=== PATIENT | male | born 1950 | race Caucasian/White ===

== ENCOUNTER 2021-03-12 16:11 | Emergency (ER) | payer MEDICARE ==
[2021-03-12 18:25] VITALS: RESP 16
--- NOTE | 2021-03-12 18:55 | CT ---
EXAMINATION TYPE: CT brain adalid heaton DATE OF EXAM: 03/12/2021 COMPARISON: None HISTORY: Fall. Left sided facial injury with puncture to left nostril by a stick. CT DLP: 1196.8 mGycm Automated exposure control for dose reduction was used. Images obtained of the brain and cervical spine without contrast. There is mild cerebral atrophy. There is no mass effect or midline shift. There is no sign of intracr anial hemorrhage. Calvarium is intact. There is some mild mucosal thickening in the left-sided spheno id sinus. Skull base is intact. Cervical vertebral abnormal alignment. There is degenerative disc space narrowing at C5-6 and C6-7 wi th bridging osteophyte formation. This calcification of the posterior longitudinal ligament from C4 t o C7 level. There is some bony spinal stenosis at C5-6 and C6-7 on the left side due to the ligament calcification. There is left-sided neural foraminal impingement. IMPRESSION: Cerebral atrophy. No acute intracranial abnormality. Spondylotic changes of the cervical spine with ligament thickening and calcification and spinal steno sis as above. No fracture.
--- NOTE | 2021-03-12 19:00 | CT ---
EXAMINATION TYPE: CT facial bones wo con DATE OF EXAM: 03/12/2021 COMPARISON: None HISTORY: Fall. Left sided facial injury with puncture to left nostril by a stick. CT DLP: 1196.8 mGycm Automated exposure control for dose reduction was used. Images obtained from the bottom of the mandible to the top of the frontal sinuses without contrast. The mandibular ring is intact. Temporomandibular joints are intact. Zygomatic arches appear normal. T he maxilla is intact. Nasal bone appears intact. Orbital margins are intact. There is no evidence of orbital blowout fracture. There is mild hyperostosis frontalis. I see no focal bone destruction. Ther e is mild ethmoid sinus mucosal thickening. IMPRESSION: Negative CT scan of the facial bones. No fracture. Minimal ethmoid sinusitis noted.
[2021-03-12 22:57] VITALS: PULSE 71; TEMP 97.1
[2021-03-12 22:59] VITALS: BP 194/104
[2021-03-12] MEDS ORDERED: ACET/COD 300 MG/30 MG STARTER PACK 6 TAB BTL PO STA (23:02)
[2021-03-12] MEDS ORDERED: AMOXIC-POT CLAV 875MG STARTER PACK 2 TAB BTL PO STA (23:02)
[2021-03-12] MEDS ORDERED: HYDROcodone/APAP 7.5-325MG 1 EACH TAB PO ONE (23:02)
--- NOTE | 2021-03-12 23:08 | ED ---
Fall HPI - General Chief Complaint: Fall Stated Complaint: Fall-Facial injury Source: patient, RN notes reviewed Mode of arrival: ambulatory Limitations: no limitations - History of Present Illness Initial Comments: This a 70-year-old male presents emergency from chief complaint of a fall. Patient states he [place] was treated states that a branch when he was left nostril. He had some bleeding. He states it is sore. Denies any visual changes no pain with ocular movement. No significant headache or neck pain. Patient states his tetanus is up-to-date. Patient offers no complaints. - Related Data Previous Rx's Medication Instructions Recorded Amoxicillin/Potassium Clav 1 tab PO Q12HR #20 tab 03/12/21 [Augmentin 875-125 Tablet] Allergies Allergy/AdvReac Type Severity Reaction Status Date / Time niacin Allergy Unknown Verified 03/12/21 18:25 [From Niaspan Extended-Release] Review of Systems ROS Statement: Those systems with pertinent positive or pertinent negative responses have been documented in the HPI. ROS Other: All systems not noted in ROS Statement are negative. Past Medical History Past Medical History: Coronary Artery Disease (CAD), Hyperlipidemia, Hypertension, Myocardial Infarction ([place]) History of Any Multi-Drug Resistant Organisms: None Reported Past Surgical History: Coronary Bypass/CABG, Heart Catheterization With Stent Past Psychological History: No Psychological Hx Reported Smoking Status: Former smoker Past Alcohol Use History: Occasional Past Drug Use History: None Reported General Exam Limitations: no limitations General appearance: alert, in no apparent distress Head exam: Present: atraumatic, normocephalic, normal inspection Eye exam: Present: normal appearance, PERRL, EOMI, other (No entrapment). Absent: scleral icterus, conjunctival injection, periorbital swelling Pupils: Present: normal accommodation ENT exam: Present: normal oropharynx, mucous membranes moist, TM's normal bilaterally, normal external ear exam, other (Dry blood the left nostril, no severe maxillary tenderness) Neck exam: Present: normal inspection. Absent: tenderness, meningismus, lymphadenopathy Respiratory exam: Present: normal lung sounds bilaterally. Absent: respiratory distress, wheezes, rales, rhonchi, stridor Cardiovascular Exam: Present: regular rate, normal rhythm, normal heart sounds. Absent: systolic murmur, diastolic murmur, rubs, gallop, clicks Neurological exam: Present: alert, oriented X3, CN II-XII intact, reflexes normal. Absent: motor sensory deficit Course Vital Signs 03/12/21 03/12/21 03/12/21 18:21 22:54 22:59 Temperature 98 F 97.1 F L Pulse Rate 69 71 Respiratory 16 16 Rate Blood Pressure 165/84 195/103 194/104 O2 Sat by Pulse 98 97 Oximetry Medical Decision Making - Medical Decision Making CTs were reviewed with no significant findings. I cannot identify foreign body or repair of laceration there was no active bleeding. Patient will be started on Augmentin, given pain control. I did explain to him that there is very high risk for infection that if there is any continuously worsening changing symptoms or any other concerns please return to emergency room immediately. Patient understands this risk. He will follow-up with ENT on Monday. Disposition Clinical Impression: Fall, Nasal trauma, Puncture wound of nose Disposition: HOME SELF-CARE Condition: Stable Instructions (If sedation given, give patient instructions): Puncture Wound (ED) Additional Instructions: Please return to the Emergency Department if symptoms worsen or any other concerns. Prescriptions: Amoxicillin/Potassium Clav [Augmentin 875-125 Tablet] 1 tab PO Q12HR #20 tab Is patient prescribed a controlled substance at d/c from ED?: No Referrals: None,Stated [Primary Care Provider] - 1-2 days Erasmo Joseph MD [STAFF PHYSICIAN] - 1-2 days Time of Disposition: 23:08
== END 2021-03-12 23:13 | disposition home or self-care (01) ==
LOC: EC 16:11
DX: S01.23XA Puncture wound without foreign body of nose, initial encounter (principal); I10 Essential (primary) hypertension; I25.2 Old myocardial infarction; I25.10 Atherosclerotic heart disease of native coronary artery without angina pectoris; E78.5 Hyperlipidemia, unspecified; Z87.891 Personal history of nicotine dependence; Z95.5 Presence of coronary angioplasty implant and graft; W01.198A Fall on same level from slipping, tripping and stumbling with subsequent striking against other object, initial encounter
CPT/HCPCS: 70450; 70486; 72125; 99284

== ENCOUNTER → 2021-05-06 | Outpatient (CLI) | payer MEDICARE ==
--- NOTE | 2021-05-07 07:45 | CT ---
EXAMINATION TYPE: CT sinus w con DATE OF EXAM: 05/06/2021 COMPARISON: 03/12/2021 HISTORY: L facial numbness, Foreign body check CT DLP: [address] of the paranasal sinuses was performed in the axial and coronal planes. Bone and soft tissue settings are submitted. The paranasal sinuses demonstrate normal aeration and development. There is chronic ethmoid sinusitis noted. Maxillary sinuses sphenoid sinus and frontal sinuses appear to be well aerated. No evidence for radiopaque foreign body. The osteal meatal units are patent bilaterally. The nasal septum is midline. No bony destructive changes are seen within the field of view. IMPRESSION: Chronic ethmoidal sinusitis.
== END | disposition home or self-care (01) ==
LOC: RADCTMAIN 14:50
PROVIDERS: ATTEND Otolaryngology
DX: J32.2 Chronic ethmoidal sinusitis (principal)
CPT/HCPCS: 82565; 84520; 36415; 70487; Q9967

== ENCOUNTER 2022-07-11 16:21 | Inpatient (IN) | payer MEDICARE ==
[2022-07-11] MEDS ORDERED: SODIUM CHLORIDE 0.9% 1,000 ML IV STA (16:38)
[2022-07-11] MEDS ORDERED: SODIUM CHLORIDE 0.9% 500 ML 500 ML IV STA (16:38)
[2022-07-11] MEDS ORDERED: AZITHROMYCIN 500 MG in SODIUM CHLORIDE 0.9% 250 ML IVPB STA (16:38)
[2022-07-11] MEDS ORDERED: IPRATROPIUM-ALBUTEROL 3 ML NEB INHALATION STA (16:38)
[2022-07-11] MEDS ORDERED: methylPREDNISolone SOD SUCCI 125 MG/2 ML VIAL IV STA (16:38)
[2022-07-11] MEDS ORDERED: KETOROLAC 15 MG/ML 1 ML VIAL IVP STA (16:39)
[2022-07-11] MEDS ORDERED: ACETAMINOPHEN TAB 500 MG TAB PO STA (16:40)
[2022-07-11 17:10] LABS: Basophils % (A) 0 %; Eosinophils % (A) 0 %; HCT 48.4 % (39.0-53.0); Lymphocytes # (A) 0.8 k/uL (1.0-4.8); Lymphocytes % (A) 7 %; MCH 29.8 pg (25.0-35.0); MCV 90.4 fL (80.0-100.0); Mean Platelet Volume 9.3; Monocytes # (A) 0.7 k/uL (0-1.0); Monocytes % (A) 6 %; Neutrophils # (A) 9.5 k/uL (1.3-7.7); Neutrophils % (A) 85 %; Platelet Count 197 k/uL (150-450); RBC 5.36 m/uL (4.30-5.90); RDW 12.7 % (11.5-15.5); WBC 11.1 k/uL (3.8-10.6)
[2022-07-11 17:14] LABS: Partial Thromboplastin Time 22.9 sec (22.0-30.0); Prothrombin Time 10.8 sec (9.0-12.0)
--- NOTE | 2022-07-11 17:14 | ED ---
SOB HPI - General Chief Complaint: Chest Pain Stated Complaint: CHEST PAIN Time Seen by Provider: 07/11/22 16:30 Source: patient Mode of arrival: ambulatory Limitations: no limitations - History of Present Illness Initial Comments: This 71-year-old male presents with a complaint of some difficulty in breathing. It sounds as though he has had some minimal problems for about a month or so. He states that he has been coughing fairly severely over the past couple of weeks. He was seen at [facility] about a week ago for similar. He was diagnosed with bronchitis and placed on antibiotics. He states that they told him that he also possibly could have pneumonia. He just finished the unknown antibiotic. Over the last day he developed a fever. Family took a temperature at home normally and this showed a temperature of 106.7. They did not give him any Tylenol or Motrin. He does state that he feels somewhat weak. He has had a mid to lower sternal chest pain as well. He states that he will cough if he takes a deep breath. He denies any pleuritic chest pain. There is no leg pain or swelling. He does relate a history of COPD. He also relates a history of previous cardiac disease including 2 myocardial infarctions, a three- vessel at age 35 and a 4 vessel CAGB at age 54. He does state that he is prone to pneumonia and used to have it on a yearly basis. No other complaints or modifying factors. The patient relates that he previously saw a drywall hanger in [facility] but he recently moved down to this area and has not established care with a drywall hanger as of yet. He has not had a stress test or heart catheterization in many years. - Related Data Previous Rx's Medication Instructions Recorded Amoxicillin/Potassium Clav 1 tab PO Q12HR #20 tab 03/12/21 [Augmentin 875-125 Tablet] Allergies Allergy/AdvReac Type Severity Reaction Status Date / Time niacin Allergy Unknown Verified 07/11/22 16:33 [From Niaspan Extended-Release] Review of Systems ROS Statement: Those systems with pertinent positive or pertinent negative responses have been documented in the HPI. ROS Other: All systems not noted in ROS Statement are negative. Past Medical History Past Medical History: Coronary Artery Disease (CAD), Hyperlipidemia, Hypertension, Myocardial Infarction ([place]) History of Any Multi-Drug Resistant Organisms: None Reported Past Surgical History: Coronary Bypass/CABG, Heart Catheterization With Stent Past Psychological History: No Psychological Hx Reported Smoking Status: Former smoker Past Alcohol Use History: Occasional Past Drug Use History: None Reported General Exam - General Exam Comments Initial Comments: GENERAL: The patient is well nourished and well hydrated. VITAL SIGNS: Heart rate, blood pressure, respiratory rate reviewed as recorded in nurse's notes. EYES: Pupils are round and reactive. Extraocular movements are intact. No conjunctival / lid redness or swelling. ENT: No external evidence of injury, swelling, or ecchymosis. Airway is patent. Throat is clear. NECK: Nontender. No swelling or evidence of injury. No subcutaneous emphysema. Trachea is midline. No thyroid mass. HEART: Regular rate and rhythm. Good peripheral pulses. LUNGS/CHEST: Breath sounds clear and equal bilaterally. No rales, rhonchi, or wheezes. No ecchymosis, subcutaneous emphysema, or tenderness. ABDOMEN: Abdomen soft without tenderness. No palpable masses or organomegaly. No peritoneal signs. No abdominal wall swelling or ecchymosis. EXTREMITIES: No extremity tenderness. Normal muscle tone and function. No thoracolumbar tenderness. NEUROLOGIC: Sensation is grossly intact. Cranial nerve exam reveals face is symmetrical, tongue is midline, speech is clear. SKIN: No abrasions or ecchymosis is noted. No induration or masses noted. PSYCHIATRIC: Alert and oriented. Appropriate behavior and judgment. Limitations: no limitations Course Vital Signs 07/11/22 07/11/22 07/11/22 16:29 16:34 16:55 Temperature 100.6 F H Pulse Rate 102 H 93 90 Respiratory 20 21 Rate Blood Pressure 148/85 148/85 O2 Sat by Pulse 94 L 99 Oximetry 07/11/22 07/11/22 07/11/22 17:00 17:08 17:30 Temperature Pulse Rate 92 92 92 Respiratory 21 16 Rate Blood Pressure 125/79 121/74 O2 Sat by Pulse 99 96 Oximetry 07/11/22 18:00 Temperature Pulse Rate 82 Respiratory 16 Rate Blood Pressure 119/66 O2 Sat by Pulse 96 Oximetry Medical Decision Making - Medical Decision Making The patient was seen and examined. All diagnostics are reviewed. The EKG does show evidence of a left bundle branch block at a rate of 96. There is associated QRS as well as ST T-wave changes likely consistent with his left bundle branch block per my interpretation. The intervals show a NV interval of 262, QRS duration of 142, and QTc interval 410. There are no old EKGs for comparison. IV is established. He is placed on a environmental monitoring technician and no ectopy is identified. He receives Toradol intravenously as well as Tylenol orally. He also receives a DuoNeb breathing treatment. Rocephin and Zithromax are given intravenously the laboratory does show slight leukocytosis as well as elevation of his troponin. The chest x-ray does not show any acute processes per my interpretation as well as the radiologist's interpretation. There is no evidence of pneumonia. It is felt as though he potentially may have bronchitis. Urinalysis is pending. Admission was recommended and patient is agreeable. Case is discussed with Dr. Bermduez who is agreeable with admission. Case also was discussed with drywall hanger who is agreeable with heparin initiation. Vinod and is therefore started for possible non-ST elevation myocardial infarction. Was pt. sent in by a medical professional or institution (, PA, PERSONNEL COORDINATOR, urgent care, hospital, or fpc...) When possible be specific @ -[No] Did you speak to anyone other than the patient for history (EMS, parent, family, police, friend...)? What history was obtained from this source @ -The and son are present and also give additional good information in regards to patient's history. Did you review nursing and triage notes (agree or disagree)? Why? @ -[I reviewed and agree with nursing and triage notes] Were old charts reviewed (outside hosp., previous admission, EMS record, old EKG, old radiological studies, urgent care reports/EKG's, fpc records)? Report findings @ -[No old charts were reviewed] Differential Diagnosis (chest pain, altered mental status, abdominal pain women, abdominal pain men, vaginal bleeding, weakness, fever, dyspnea, syncope, headac he, dizziness, GI bleed, back pain, seizure, CVA, palpatations, mental health, musculoskeletal)? @ -Non-ST elevation myocardial infarction, unstable angina, bronchitis, pneumonia, musculoskeletal chest pain, fever, hyperpyrexia, sepsis EKG interpreted by me (3pts min.). @ -[As above] X-rays interpreted by me (1pt min.). @ -[None done] CT interpreted by me (1pt min.). @ -[None done] U/S interpreted by me (1pt. min.). @ -[None done] What testing was considered but not performed or refused? (CT, X-rays, U/S, labs)? Why? @ -[None] What meds were considered but not given or refused? Why? @ -[None] Did you discuss the management of the patient with other professionals (professionals i.e. DrBroderick, PA, PERSONNEL COORDINATOR, lab, RT, psych nurse, social and political studies professor, intellectual property lawyer, teacher, chief technology officer, family service caseworker)? Give summary @ -Case is discussed with admitting physician as well as drywall hanger. Was smoking cessation discussed for >3mins.? @ -[No] Was critical care preformed (if so, how long)? @ -30 minutes of critical care time is utilized and the treatment of the patient. Were there social determinants of health that impacted care today? How? (Homelessness, low income, unemployed, alcoholism, drug addiction, transportation, low edu. Level, literacy, decrease access to med. care, long-term, rehab)? @ -[No] Was there de-escalation of care discussed even if they declined (Discuss DNR or withdrawal of care, Hospice)? DNR status @ -[No] What co-morbidities impacted this encounter? (DM, HTN, Smoking, COPD, CAD, Cancer, CVA, ARF, Chemo, Hep., AIDS, mental health diagnosis, sleep apnea, morbid obesity)? @ -[None] Was patient admitted / discharged? Hospital course, mention meds given and route, prescriptions, significant lab abnormalities, going to OR and other pertinent info. @ -The patient is admitted to the hospital as above. Undiagnosed new problem with uncertain prognosis? @ -[No] Drug Therapy requiring intensive monitoring for toxicity (Heparin, Nitro, Insulin, Cardizem)? @ -Patient is on heparin bolus and drip. Were any procedures done? @ -[No] Diagnosis/symptom? @ -As above Acute, or Chronic, or Acute on Chronic? @ -Acute Uncomplicated (without systemic symptoms) or Complicated (systemic symptoms)? @ -Uncomplicated Side effects of treatment? @ -[No] Exacerbation, Progression, or Severe Exacerbation? @ -[No] Poses a threat to life or bodily function? How? (Chest pain, [place], [place], pneumonia, PE, COPD, DKA, ARF, appy, cholecystitis, CVA, Diverticulitis, Homicidal, Suicidal, threat to staff... and all critical care pts) @ -Yes, a non-ST elevation myocardial infarction is potentially life- threatening. - Lab Data Result diagrams: 07/11/22 16:42 07/11/22 16:42 Lab Results 07/11/22 07/11/22 07/11/22 Range/Units 16:42 16:42 16:42 WBC 11.1 H (3.8-10.6) k/uL RBC 5.36 (4.30-5.90) m/uL Hgb 16.0 (13.0-17.5) gm/dL Hct 48.4 (39.0-53.0) % MCV 90.4 (80.0-100.0) fL MCH 29.8 (25.0-35.0) pg MCHC 33.0 (31.0-37.0) g/dL RDW 12.7 (11.5-15.5) % Plt Count 197 (150-450) k/uL MPV 9.3 Neutrophils % 85 % Lymphocytes % 7 % Monocytes % 6 % Eosinophils % 0 % Basophils % 0 % Neutrophils # 9.5 H (1.3-7.7) k/uL Lymphocytes # 0.8 L (1.0-4.8) k/uL Monocytes # 0.7 (0-1.0) k/uL Eosinophils # 0.0 (0-0.7) k/uL Basophils # 0.0 (0-0.2) k/uL PT 10.8 (9.0-12.0) sec INR 1.0 (<1.2) APTT 22.9 (22.0-30.0) sec Sodium 138 (137-145) mmol/L Potassium 3.9 (3.5-5.1) mmol/L Chloride 103 (98-107) mmol/L Carbon Dioxide 21 L (22-30) mmol/L Anion Gap 14 mmol/L BUN 19 (9-20) mg/dL Creatinine 0.84 (0.66-1.25) mg/dL Est GFR (CKD-EPI)AfAm >90 (>60 ml/min/1.73 sqM) Est GFR (CKD-EPI)NonAf 89 (>60 ml/min/1.73 sqM) Glucose 128 H (74-99) mg/dL Plasma Lactic Acid Shay (0.7-2.0) mmol/L Calcium 9.4 (8.4-10.2) mg/dL Total Bilirubin 1.2 (0.2-1.3) mg/dL AST 24 (17-59) U/L ALT 33 (4-49) U/L Alkaline Phosphatase 77 (38-126) U/L Troponin I (0.000-0.034) ng/mL NT-Pro-B Natriuret Pep pg/mL Total Protein 7.9 (6.3-8.2) g/dL Albumin 4.6 (3.5-5.0) g/dL Influenza Type A (PCR) (Not Detectd) Influenza Type B (PCR) (Not Detectd) RSV (PCR) (Not Detectd) SARS-CoV-2 (PCR) (Not Detectd) 07/11/22 07/11/22 07/11/22 Range/Units 16:42 16:42 16:42 WBC (3.8-10.6) k/uL RBC (4.30-5.90) m/uL Hgb (13.0-17.5) gm/dL Hct (39.0-53.0) % MCV (80.0-100.0) fL MCH (25.0-35.0) pg MCHC (31.0-37.0) g/dL RDW (11.5-15.5) % Plt Count (150-450) k/uL MPV Neutrophils % % Lymphocytes % % Monocytes % % Eosinophils % % Basophils % % Neutrophils # (1.3-7.7) k/uL Lymphocytes # (1.0-4.8) k/uL Monocytes # (0-1.0) k/uL Eosinophils # (0-0.7) k/uL Basophils # (0-0.2) k/uL PT (9.0-12.0) sec INR (<1.2) APTT (22.0-30.0) sec Sodium (137-145) mmol/L Potassium (3.5-5.1) mmol/L Chloride (98-107) mmol/L Carbon Dioxide (22-30) mmol/L Anion Gap mmol/L BUN (9-20) mg/dL Creatinine (0.66-1.25) mg/dL Est GFR (CKD-EPI)AfAm (>60 ml/min/1.73 sqM) Est GFR (CKD-EPI)NonAf (>60 ml/min/1.73 sqM) Glucose (74-99) mg/dL Plasma Lactic Acid Shay 1.5 (0.7-2.0) mmol/L Calcium (8.4-10.2) mg/dL Total Bilirubin (0.2-1.3) mg/dL AST (17-59) U/L ALT (4-49) U/L Alkaline Phosphatase (38-126) U/L Troponin I 0.096 H* (0.000-0.034) ng/mL NT-Pro-B Natriuret Pep 773 pg/mL Total Protein (6.3-8.2) g/dL Albumin (3.5-5.0) g/dL Influenza Type A (PCR) (Not Detectd) Influenza Type B (PCR) (Not Detectd) RSV (PCR) (Not Detectd) SARS-CoV-2 (PCR) (Not Detectd) 07/11/22 Range/Units 16:42 WBC (3.8-10.6) k/uL RBC (4.30-5.90) m/uL Hgb (13.0-17.5) gm/dL Hct (39.0-53.0) % MCV (80.0-100.0) fL MCH (25.0-35.0) pg MCHC (31.0-37.0) g/dL RDW (11.5-15.5) % Plt Count (150-450) k/uL MPV Neutrophils % % Lymphocytes % % Monocytes % % Eosinophils % % Basophils % % Neutrophils # (1.3-7.7) k/uL Lymphocytes # (1.0-4.8) k/uL Monocytes # (0-1.0) k/uL Eosinophils # (0-0.7) k/uL Basophils # (0-0.2) k/uL PT (9.0-12.0) sec INR (<1.2) APTT (22.0-30.0) sec Sodium (137-145) mmol/L Potassium (3.5-5.1) mmol/L Chloride (98-107) mmol/L Carbon Dioxide (22-30) mmol/L Anion Gap mmol/L BUN (9-20) mg/dL Creatinine (0.66-1.25) mg/dL Est GFR (CKD-EPI)AfAm (>60 ml/min/1.73 sqM) Est GFR (CKD-EPI)NonAf (>60 ml/min/1.73 sqM) Glucose (74-99) mg/dL Plasma Lactic Acid Shay (0.7-2.0) mmol/L Calcium (8.4-10.2) mg/dL Total Bilirubin (0.2-1.3) mg/dL AST (17-59) U/L ALT (4-49) U/L Alkaline Phosphatase (38-126) U/L Troponin I (0.000-0.034) ng/mL NT-Pro-B Natriuret Pep pg/mL Total Protein (6.3-8.2) g/dL Albumin (3.5-5.0) g/dL Influenza Type A (PCR) Not Detected (Not Detectd) Influenza Type B (PCR) Not Detected (Not Detectd) RSV (PCR) Not Detected (Not Detectd) SARS-CoV-2 (PCR) Not Detected (Not Detectd) Disposition Clinical Impression: Hyperpyrexia, Cough, Dyspnea, Chest pain, Non-ST elevation myocardial infarction (NSTEMI), Leukocytosis Disposition: ADMITTED IP TO THIS HOSP Condition: Fair Is patient prescribed a controlled substance at d/c from ED?: No Time of Disposition: 18:53 Decision Date: 07/11/22 Decision Time: 18:53
[2022-07-11 17:15] LABS: ALT 33 U/L (4-49); AST 24 U/L (17-59); African American GFR (CKD) >90 (>60 ml/min/1.73 sqM); Albumin 4.6 g/dL (3.5-5.0); Alkaline Phosphatase 77 U/L (38-126); Anion Gap 14 mmol/L; Blood Urea Nitrogen 19 mg/dL (9-20); Calcium 9.4 mg/dL (8.4-10.2); Carbon Dioxide 21 mmol/L (22-30); Chloride 103 mmol/L (98-107); Glucose 128 mg/dL (74-99); Non-African American GFR(CKD) 89 (>60 ml/min/1.73 sqM); Potassium 3.9 mmol/L (3.5-5.1); Sodium 138 mmol/L (137-145); Total Bilirubin 1.2 mg/dL (0.2-1.3); Total Protein 7.9 g/dL (6.3-8.2)
--- NOTE | 2022-07-11 17:47 | XR ---
EXAMINATION TYPE: XR chest 2V DATE OF EXAM: 07/11/2022 5:33 PM COMPARISON: None. TECHNIQUE: XR chest 2V Frontal and lateral views of the chest. CLINICAL INDICATION:Male, 71 years old with history of difficulty breathing; FINDINGS: Lungs/Pleura: There is flattening of the diaphragm with increased lucency of the lungs. No evidence o f pneumothorax, pleural effusion or focal consolidation. Pulmonary vascularity: Pulmonary vascular congestion. Heart/mediastinum: Cardiomediastinal silhouette is enlarged and stable. Musculoskeletal: No acute osseous pathology. Midline sternotomy wires are noted. IMPRESSION: 1. No acute cardiopulmonary disease process. 2. COPD changes.
[2022-07-11] MEDS ORDERED: ASPIRIN 81 MG PO STA (18:19)
[2022-07-11] MEDS ORDERED: NITROGLYCERIN OINT 1 INCH/GM PACKET TOPICAL STA (18:19)
[2022-07-11] MEDS ORDERED: HEPARIN SODIUM 1,000 UN/ML (10ML VL) IV ONE (18:46)
[2022-07-11] MEDS ORDERED: HEPARIN SODIUM 1,000 UN/ML (10ML VL) IV PRN (18:46)
[2022-07-11] MEDS ORDERED: FAMOTIDINE 20 MG/2 ML VIAL IV STA (18:47)
[2022-07-11] MEDS ORDERED: MORPHINE SULFATE 2 MG/ML SYRINGE IVP PRN (18:54)
[2022-07-11] MEDS ORDERED: NITROGLYCERIN SL TABS 0.4 MG TAB SUBLINGUAL PRN (18:54)
[2022-07-11] MEDS: HEPARIN SOD,PORK IN 0.45% NACL 25,000 UNIT in 0.45% NACL 1 250ML.BAG IV SCH (19:14)
[2022-07-11 19:24] LABS: Appearance,Urine Clear (Clear); Bilirubin,Urine Negative (Negative); Blood,Urine Negative (Negative); Color,Urine Yellow; Glucose,Urine (UA) Negative (Negative); Ketones,Urine 1+ (Negative); Leukocyte Esterase,Urine Negative (Negative); Nitrite,Urine Negative (Negative); PH, Urine 5.5 (5.0-8.0); Protein,Urine Negative (Negative); Urobilinogen,Urine <2.0 mg/dL (<2.0)
[2022-07-11] MEDS ORDERED: ALBUTEROL HFA INHALER INHALATION PRN (20:05)
[2022-07-11] MEDS: IPRATROPIUM-ALBUTEROL 3 ML NEB INHALATION SCH (20:36)
[2022-07-11] MEDS: methylPREDNISolone SOD SUCCI 125 MG/2 ML VIAL IV SCH (23:45)
[2022-07-11] MEDS: NITROGLYCERIN OINT 1 INCH/GM PACKET TOPICAL SCH (23:47)
[2022-07-12] MEDS: IPRATROPIUM-ALBUTEROL 3 ML NEB INHALATION SCH ×6 (00:02→20:20)
[2022-07-12] MEDS: NITROGLYCERIN OINT 1 INCH/GM PACKET TOPICAL SCH ×5 (05:44→22:58)
[2022-07-12] MEDS: methylPREDNISolone SOD SUCCI 125 MG/2 ML VIAL IV SCH ×4 (05:44→22:58)
[2022-07-12] MEDS ORDERED: ASPIRIN 325 MG TAB PO SCH (09:00)
[2022-07-12] MEDS ORDERED: METOPROLOL SUCCINATE (ER) 50 MG TAB.ER.24H PO SCH (09:00)
[2022-07-12] MEDS: TAMSULOSIN 0.4 MG CAP.ER.24H PO SCH (09:13)
[2022-07-12] MEDS: PANTOPRAZOLE 40 MG TABLET PO SCH (09:13)
[2022-07-12] MEDS: MONTELUKAST 10 MG TAB PO SCH (09:13)
[2022-07-12] MEDS: FLUTICASONE 50MCG/SPRAY NASAL 16GM EA NOSTRIL SCH (09:19)
[2022-07-12] MEDS: CLOPIDOGREL 75 MG TAB PO SCH (09:19)
[2022-07-12 10:00] LABS: Basophils % (A) 0 %; Eosinophils % (A) 0 %; HGB 14.6 gm/dL (13.0-17.5); Lymphocytes % (A) 10 %; MCH 30.1 pg (25.0-35.0); MCHC 33.2 g/dL (31.0-37.0); MCV 90.9 fL (80.0-100.0); Mean Platelet Volume 9.7; Monocytes # (A) 0.1 k/uL (0-1.0); Monocytes % (A) 1 %; Neutrophils # (A) 8.9 k/uL (1.3-7.7); Neutrophils % (A) 88 %; Platelet Count 179 k/uL (150-450); RBC 4.84 m/uL (4.30-5.90); RDW 13.2 % (11.5-15.5); WBC 10.1 k/uL (3.8-10.6)
[2022-07-12 10:13] LABS: INR 1.1 (<1.2); Prothrombin Time 11.5 sec (9.0-12.0)
[2022-07-12] MEDS: METOPROLOL TARTRATE 50 MG TAB PO SCH ×3 (10:43→21:17)
[2022-07-12] MEDS: AZITHROMYCIN 500 MG in SODIUM CHLORIDE 0.9% 250 ML IVPB SCH (10:44)
[2022-07-12] MEDS: FUROSEMIDE 10 MG/ML 4 ML VIAL IV SCH ×3 (10:45→22:57)
[2022-07-12] MEDS ORDERED: NITROGLYCERIN SL TABS 0.4 MG TAB SUBLINGUAL PRN (12:12)
[2022-07-12] MEDS ORDERED: ALPRAZolam 0.5 MG TAB PO PRN (12:12)
[2022-07-12] MEDS ORDERED: ALPRAZolam 0.25 MG TAB PO PRN (12:12)
[2022-07-12 15:35] LABS: VLDL Calculation 12.58 mg/dL (5.00-40.00)
[2022-07-12] MEDS: ACETAMINOPHEN TAB 325 MG TAB PO PRN ×2 (17:33→22:53)
[2022-07-12] MEDS ORDERED: ATORVASTATIN 80 MG TAB PO SCH (21:00)
[2022-07-12] MEDS ORDERED: IPRATROPIUM-ALBUTEROL 3 ML NEB INHALATION PRN (22:05)
--- NOTE | 2022-07-12 22:26 | CONS ---
CONSULTATION REASON FOR CONSULTATION: Elevated troponin. HISTORY OF PRESENT ILLNESS: Mr. Josh Pacheco is a 71-year-old gentleman, who has moved here from [facility] and came into the hospital nearly 2 to 3 weeks of what seems to be symptoms of upper respiratory tract infection with cough and expectoration, having been on antibiotics through his PCP. He came in with complaints of mostly feeling short of breath with cough and was then found to have sinus tachycardia and EKG revealed IVCD type picture with some evidence of intermittent short runs of PAT. His troponins have been elevated suggestive of a qyu-SS-kthsxqlhj FL. At the time of my evaluation, he feels a lot better. No chest pain. Resting comfortably. Breathing is easier. This patient has a significant past medical history that includes coronary artery disease with 2 previous bypass surgery initially in 1985 in [facility], subsequently in [facility] in [place] in 2004 followed by 2 vessel stenting. None of the details of the location of bypasses or the vessel stented is available. The patient has hypertension, hyperlipidemia. He was 36 years of age when he had his first bypass surgery. He additionally has hypertension, hyperlipidemia as well as benign prostatic hypertrophy. PAST MEDICAL HISTORY: 1. CAD with prior FL and 2 bypass surgeries in 1985 and 2004. 2. Hypertension. 3. Hyperlipidemia. 4. Bronchial asthma. 5. History of benign prostatic hypertrophy. MEDICATIONS: Medications at home include, 1. Zestril 2.5 mg daily. 2. Omeprazole 20 mg daily. 3. Metoprolol succinate 50 mg daily. 4. Flomax 0.4 mg daily. 5. Singulair 10 mg daily. 6. Plavix 75 mg daily, and he takes Repatha injections 140 mg subcu every 2 weeks and also albuterol inhaler. PHYSICAL EXAMINATION: VITAL SIGNS: Blood pressure is 140/70, pulse rate is about 88 per minute with short runs of PAT, sinus mechanism with IVCD. HEENT: Unremarkable. Fundus was not examined by me. NECK: Supple. There is 1 cm JVD. There are bilateral soft carotid bruits. HEART: Reveals S1, S2 with a systolic murmur at the left sternal border and apex. Second heart sound is preserved. LUNGS: Reveal fine bibasal rales. ABDOMEN: Soft, nontender. LOWER EXTREMITIES: Reveal normal pulses. No edema. CENTRAL NERVOUS SYSTEM: Normal. LABORATORY DATA: Suggest troponin profile suggestive of buq-RY-qawezpkoq FL and creatinine appears to be in the upper range of normal. IMPRESSION: 1. Acute upper respiratory infection/bronchitis with fever up to 104 degrees. According to the patient, he was febrile after arrival, but he is better now. 2. Cuw-BY-luwnuanhe myocardial infarction. 3. History of coronary artery disease with 2 previous prior bypass surgery. 4. Hyperlipidemia. 5. Hypertension. RECOMMENDATIONS: I am recommending that we continue intravenous heparin. I will obtain the records from [facility] regarding the location of bypass surgery and the stented arteries as soon as possible. We will continue intravenous heparin drip. I will add Lasix 20 mg q.8 hours IV push. Watch his renal function. Continue antibiotics and I will also place him on atorvastatin 80 mg daily and continue his aspirin and Plavix. I will perform coronary angiography tomorrow morning at 7:30, but if he has more symptoms, I will study him sooner. We are dealing with a tlb-CZ-jntdijiyq FL with unknown anatomy regarding the bypasses. I will obtain echocardiogram as soon as possible to assess LV function. I discussed my thoughts in detail with the patient. Thank you very much for the consult. MMODL / IJN: [id number] /
[2022-07-12] MEDS: HEPARIN SOD,PORK IN 0.45% NACL 25,000 UNIT in 0.45% NACL 1 250ML.BAG IV SCH (22:54)
[2022-07-12] MEDS: SODIUM CHLORIDE 0.9% 1,000 ML in EMPTY BAG 1 BAG IV SCH (22:57)
--- NOTE | 2022-07-13 00:17 | HP ---
HISTORY AND PHYSICAL CHIEF COMPLAINT: Cough, shortness of breath, and chest pain. HISTORY OF PRESENT ILLNESS: This is another admission for this 71-year-old white male. He presented to the emergency room after he had become quite short of breath over the last 4 days, but he noted that he felt better when he was sitting up. He had had a fever and had been coughing up some green sputum. He also noticed some pressure-like sensation in the anterior chest. He had no diaphoresis, palpitations, syncope, or radiation of the pain in the arms, back, or jaw. He finally came to the emergency room where he was diagnosed having bronchitis and there was no clear-cut evidence of pneumonitis. However, his troponins were elevated. REVIEW OF SYSTEMS: He denies any neurologic problems, change in vision, hearing, hemoptysis, abdominal pain, nausea, vomiting, melena, hematochezia, jaundice, hepatitis, hematuria, frequency, urgency, nocturia, renal failure, incontinence, diabetes, etc. PAST MEDICAL PROBLEMS, FAMILY, PERSONAL AND SOCIAL HISTORY: Unremarkable otherwise. He has a history of hypertension. He does not smoke and never has. ALLERGIES: He is not allergic to any medication. MEDICATIONS: He is taking, 1. Tamsulosin 0.4 h.s. 2. Clopidogrel 75 once a day. 3. Metoprolol 50 mg once a day. 4. Omeprazole 20 mg once a day. 5. Lisinopril 2.5 mg once a day. 6. Flonase once a day. 7. Albuterol. 8. Symbicort. PHYSICAL EXAMINATION: VITAL SIGNS: Blood pressure 122/74 with a pulse of 110. He is in sinus rhythm with sinus tach. Pulse ox 97%. GENERAL: He appeared to be in no acute distress. SKIN: Color is normal. Skin is warm and dry. LYMPHATICS: Lymph nodes are not enlarged. HEENT: Head, ears, eyes, nose, mouth and throat were normal. NECK: Veins are not distended. Thyroid not enlarged. CHEST: Demonstrated occasional rales and rhonchi posteriorly. CARDIOVASCULAR: Demonstrates sinus tachycardia with no murmurs or extra sounds. ABDOMEN: Soft, nontender without visceromegaly or masses. Bowel sounds are present. EXTREMITIES: Normal. NEUROLOGICAL: He was intact. DIAGNOSES: He was admitted to the hospital with diagnoses, 1. Chest pain. 2. Elevated troponin. 3. Bronchitis. 4. Probable congestive heart failure. PLAN: 1. Bed rest. 2. IV fluids. 3. Nasal O2. 4. Consult with Cardiology because of troponins. 5. BNP. DUANE / CHRISTIANAN: [id number] /
--- NOTE | 2022-07-13 00:29 | PN ---
PROGRESS NOTE DATE OF SERVICE: 07/12/2022 CHIEF COMPLAINT: Shortness of breath, chest pain with elevated troponin. HISTORY OF PRESENT ILLNESS: This gentleman is feeling much better. His shortness of breath has improved. All 3 troponins are elevated, however. He denies pain at this time. PHYSICAL EXAMINATION: CHEST: Clear. CARDIAC: Normal. ABDOMEN: Soft and nontender. VITAL SIGNS: His blood pressure is good at 137/74. IMPRESSION: 1. NSTEMI. 2. Bronchitis. PLAN: Telemetry and await cardiology evaluation. MMODL / IJN: [id number] /
[2022-07-13] MEDS ORDERED: ASPIRIN 325 MG TAB PO ONE (05:00)
[2022-07-13] MEDS ORDERED: ATORVASTATIN 80 MG TAB PO ONE (05:00)
[2022-07-13] MEDS: FUROSEMIDE 10 MG/ML 4 ML VIAL IV SCH ×2 (05:52→18:43)
[2022-07-13] MEDS: METOPROLOL TARTRATE 50 MG TAB PO SCH ×3 (06:30→21:30)
[2022-07-13] MEDS: PANTOPRAZOLE 40 MG TABLET PO SCH (06:30)
[2022-07-13] MEDS: MONTELUKAST 10 MG TAB PO SCH (06:30)
[2022-07-13] MEDS: CLOPIDOGREL 75 MG TAB PO SCH (06:30)
[2022-07-13] MEDS: methylPREDNISolone SOD SUCCI 125 MG/2 ML VIAL IV SCH ×2 (06:30→13:04)
[2022-07-13] MEDS: TAMSULOSIN 0.4 MG CAP.ER.24H PO SCH ×2 (06:31→18:44)
[2022-07-13] MEDS: NITROGLYCERIN OINT 1 INCH/GM PACKET TOPICAL SCH ×2 (06:31→13:04)
[2022-07-13] MEDS: FLUTICASONE 50MCG/SPRAY NASAL 16GM EA NOSTRIL SCH (06:32)
[2022-07-13] MEDS ORDERED: HEPARIN SODIUM,PORCINE 2,500 UNIT in SODIUM CHLORIDE 0.9% 250 ML IRRIGATION PRN (07:00)
[2022-07-13] MEDS ORDERED: HEPARIN SODIUM,PORCINE 10,000 UNIT in SODIUM CHLORIDE 0.9% 1,000 ML IRRIGATION PRN (07:00)
--- NOTE | 2022-07-13 07:29 | CA ---
Transthoracic Echo Report Name: Josh Pacheco Age: 71 Gender: M : 1950 Exam Date: 07/12/2022 10:19 Exam Location: [facility] Ht (in): 72 Wt (lb): 195 Ordering Physician: Terence Hughes DO Attending/Referring Phys: Manager [employer] Communications Kimberly Sarmiento RDCS Procedure CPT: Indications: CP Cardiac Hx: Technical Quality: Fair Contrast 1: Total Dose (mL): Contrast 2: Total Dose (mL): MEASUREMENTS (Male / Female) Normal Values 2D ECHO LV Diastolic Diameter PLAX 6.8 cm 4.2 - 5.9 / 3.9 - 5.3 cm LV Systolic Diameter PLAX 5.0 cm IVS Diastolic Thickness 1.7 cm 0.6 - 1.0 / 0.6 - 0.9 cm LVPW Diastolic Thickness 1.8 cm 0.6 - 1.0 / 0.6 - 0.9 cm LV Relative Wall Thickness 0.5 RV Internal Dim ED PLAX 4.1 cm LA Volume 83.1 cm??? 18 - 58 / 22 - 52 cm??? M-MODE Aortic Root Diameter MM 3.3 cm LA Systolic Diameter MM 5.3 cm LA Ao Ratio MM 1.6 AV Cusp Separation MM 1.7 cm DOPPLER AV Peak Velocity 189.8 cm/s AV Peak Gradient 14.4 mmHg AV Mean Velocity 136.2 cm/s AV Mean Gradient 7.9 mmHg AV Velocity Time Integral 42.5 cm LVOT Peak Velocity 112.6 cm/s LVOT Peak Gradient 5.1 mmHg MV Area PHT 7.5 cm??? Mitral E Point Velocity 144.8 cm/s Mitral A Point Velocity 2.7 cm/s Mitral E to A Ratio 53.4 MV Deceleration Time 100.8 ms MV E' Velocity 5.3 cm/s Mitral E to MV E' Ratio 27.2 TR Peak Velocity 287.6 cm/s TR Peak Gradient 33.1 mmHg Right Ventricular Systolic Press 38.1 mmHg FINDINGS Left Ventricle Moderately increased left ventricular wall thickness. Mild left ventricular dilatation. Hypokinetic mid inferior wall. Hypokinetic mid lateral wall. Left ventricular ejection fraction is estimated at 35- 40 %. Right Ventricle Moderate right ventricular dilatation. Mild pulmonary hypertension. Right Atrium Mild right atrial dilatation. Left Atrium Severely increased left atrial volume. Mildly increased left atrial area. Mitral Valve Structurally normal mitral valve. Mild mitral regurgitation.mitral annular calcification. Aortic Valve Thickened aortic valve without stenosis. No aortic regurgitation. Tricuspid Valve Structurally normal tricuspid valve. Qusk-ro-hegywzyp tricuspid regurgitation. Pulmonic Valve Structurally normal pulmonic valve. Trace pulmonic regurgitation. Pericardium No pericardial effusion. Aorta Normal size aortic root and proximal ascending aorta. CONCLUSIONS 1. Moderately impaired left ventricular systolic function with segmental wall motion abnormality consistent with CAD 2. Mild mitral with mild to moderate tricuspid regurgitation and mild pulmonary hypertension Previewed by: Dr. Ivon Cole MD (Electronically Signed) Final Date: 12 Jul 2022 13:11
[2022-07-13] MEDS: IPRATROPIUM-ALBUTEROL 3 ML NEB INHALATION SCH ×4 (08:30→21:28)
[2022-07-13] MEDS: AZITHROMYCIN 500 MG in SODIUM CHLORIDE 0.9% 250 ML IVPB SCH (09:43)
[2022-07-13 11:09] LABS: African American GFR (CKD) >90 (>60 ml/min/1.73 sqM); Anion Gap 11 mmol/L; Blood Urea Nitrogen 23 mg/dL (9-20); Calcium 9.4 mg/dL (8.4-10.2); Carbon Dioxide 25 mmol/L (22-30); Chloride 104 mmol/L (98-107); Glucose 172 mg/dL (74-99); Non-African American GFR(CKD) 84 (>60 ml/min/1.73 sqM); Sodium 140 mmol/L (137-145)
--- NOTE | 2022-07-13 11:25 | P.PN ---
Subjective Progress Note Date: 07/13/22 HISTORY OF PRESENT ILLNESS: This is a 71-year-old male who presented to the hospital with a chief complaint of upper respiratory symptoms. Patient was found to have a NSTEMI. He is scheduled to undergo cardiac catheterization today with Dr. Segura. Patient currently denies any chest pain or pressure. He denies shortness of breath. Vital signs are stable. Echocardiogram completed revealing ejection fraction 35-40%, mild pulmonary hypertension, mild mitral regurgitation, hqbb-ms-zngjtpyj tricuspid regurgitation. *Records reviewed from [facility]. Patient had his first CABG in 1985. He underwent a second CABG in 2004. The patient continued to have chest pain after his second CABG. He underwent cardiac catheterization in September 2004 revealing patent MONTESINOS to LAD. Occluded SVG to OM1, patent SVG to OM 2, and patent SVG to RCA. Patient underwent stenting of the SVG to the OM1. He also underwent stenting of the ostium and proximal LAD supplying the diagonal which was a tuscarora vessel. PHYSICAL EXAM: VITAL SIGNS: Reviewed. GENERAL: Well-developed in no acute distress. NECK: Supple. No JVD or thyromegaly LUNGS: Respirations even and unlabored. Lungs essentially clear to auscultation bilaterally. HEART: Regular rate and rhythm. S1 and S2 heard. EXTREMITIES: Normal range of motion. No clubbing or cyanosis. Peripheral pulses intact. No lower extremity edema ASSESSMENT: Upper respiratory infection Non-STEMI History of coronary artery disease with previous CABG 2 in 1985 and 2004 and subsequent stenting Hypertension Hyperlipidemia, on Repatha outpatient Ischemic cardiomyopathy Runs of paroxysmal atrial tachycardia PLAN: Continue IV heparin. Discontinue at 0930 for cardiac cath today. Continue additional cardiac medications Increase lisinopril for optimal blood pressure control Patient to undergo cardiac cath today with Dr. Segura Further recommendations pending patient course Nurse practitioner note has been reviewed by physician. Signing provider agrees with the documented findings, assessment, and plan of care. Objective - Vital Signs Vital signs: Vital Signs Temp 97.2 F L 07/13/22 08:00 Pulse 92 07/13/22 08:43 Resp 18 07/13/22 08:00 BP 186/97 07/13/22 08:00 Pulse Ox 97 07/13/22 08:00 FiO2 Intake & Output 07/12/22 07/13/22 07/13/22 18:59 06:59 18:59 Intake Total 180 250 Output Total 700 Balance 180 -450 Weight 88.451 kg 87.9 kg Intake: Intake, IV Titration 250 Amount Heparin Sod,Pork in 0.45% 250 NaCl 25,000 unit In 0.45 % NaCl 1 250ml.bag @ 11.3 UNITS/KG/HR 9.995 mls/hr IV .Q24H [facility] Rx#: [id number] Oral 180 Output: Urine 700 Other: Voiding Method Toilet - Labs CBC & Chem 7: 07/12/22 09:14 07/13/22 09:14 Labs: Abnormal Lab Results - Last 24 Hours (Table) 07/12/22 07/12/22 07/13/22 Range/Units 12:32 23:37 09:14 APTT 54.1 H (22.0-30.0) sec BUN 23 H (9-20) mg/dL Glucose 172 H (74-99) mg/dL Troponin I 4.460 H* (0.000-0.034) ng/mL 07/13/22 Range/Units 09:14 APTT 38.6 H (22.0-30.0) sec BUN (9-20) mg/dL Glucose (74-99) mg/dL Troponin I (0.000-0.034) ng/mL Microbiology - Last 24 Hours (Table) 07/11/22 16:38 Blood Culture - Preliminary Blood
[2022-07-13] MEDS ORDERED: HEPARIN SODIUM 1,000 UN/ML (10ML VL) ONE (12:06)
[2022-07-13] MEDS ORDERED: VERAPAMIL 2.5 MG/ML 2 ML AMP ONE (12:06)
[2022-07-13] MEDS ORDERED: LIDOCAINE 1% INJ 10MG/ML (20 ML MDV) ONE (12:11)
[2022-07-13] MEDS ORDERED: SODIUM CHLORIDE 0.9% 1,000 ML IV ONE (12:15)
[2022-07-13] MEDS ORDERED: MIDAZOLAM 2 MG/2 ML VIAL IVP ONE (12:17)
[2022-07-13] MEDS ORDERED: LIDOCAINE 1% INJ 10MG/ML (20 ML MDV) SQ ONE (12:20)
[2022-07-13] MEDS ORDERED: fentaNYL (PF) 50 MCG/ML 2 ML AMP ONE (12:23)
[2022-07-13] MEDS ORDERED: fentaNYL (PF) 50 MCG/ML 2 ML AMP IVP ONE (12:25)
[2022-07-13] MEDS ORDERED: IOPAMIDOL-370 100ML BTL INJ ONE ×2 (12:45→14:14)
[2022-07-13] MEDS ORDERED: FUROSEMIDE 10 MG/ML 4 ML VIAL ONE (12:52)
[2022-07-13] MEDS: HEPARIN SODIUM 1,000 UN/ML (10ML VL) IV ONE ×3 (12:55→14:22)
[2022-07-13] MEDS ORDERED: FUROSEMIDE 10 MG/ML 4 ML VIAL IV ONE (12:55)
[2022-07-13] MEDS ORDERED: HYDROmorphone 0.5 MG/0.5 ML SYRINGE IVP ONE ×2 (13:57→14:13)
[2022-07-13] MEDS ORDERED: NITROGLYCERIN 1000MCG/10ML SYRINGE INTRACORON ONE (14:11)
[2022-07-13] MEDS ORDERED: CLOPIDOGREL 75 MG TAB ONE (14:15)
[2022-07-13] MEDS ORDERED: CLOPIDOGREL 75 MG TAB PO ONE (14:22)
[2022-07-13] MEDS ORDERED: ZOLPIDEM 5 MG TAB PO PRN (14:31)
[2022-07-13] MEDS ORDERED: ATROPINE SULFATE 0.1 MG/ML 10ML SYRINGE IV PRN (14:31)
[2022-07-13] MEDS ORDERED: MAG HYDROX/AL HYDROX/SIMETH 30 ML CUP PO PRN (14:31)
[2022-07-13] MEDS ORDERED: RX INFO: IV CONTRAST WAS GIVEN 1 EACH MISC MISCELLANE PRN (14:31)
[2022-07-13] MEDS: SODIUM CHLORIDE 0.9% 1,000 ML in EMPTY BAG 1 BAG IV SCH (21:30)
[2022-07-13] MEDS: lisinopriL 10 MG TAB PO SCH (21:30)
[2022-07-14] MEDS: FUROSEMIDE 10 MG/ML 4 ML VIAL IV SCH ×2 (00:34→09:21)
--- NOTE | 2022-07-14 02:17 | CC ---
CARDIAC CATHETERIZATION REPORT PROCEDURES PERFORMED: 1. Left heart catheterization, coronary angiography, and selective injection of bypass grafts and left internal mammary artery graft. 2. Shockwave lithotripsy of major diagonal branch of left anterior descending. 3. Percutaneous transluminal coronary angioplasty and stenting of major diagonal branch of left anterior descending with a drug-eluting stent. PERFORMED BY: Dr. Artie Segura. Moderate conscious sedation time was 2 hours and 5 minutes. CLINICAL INFORMATION: Mr. Josh Pacheco is a 71-year-old gentleman with a history of CAD. He underwent 2 aortocoronary bypass surgeries, one in 1985 when he was 37 years of age and another one in 2004. In 2004, following his bypass surgery in August 2004, in September, he had a non-ST- elevation AZ and underwent a cardiac cath, which revealed that one of the graft was occluded, and therefore it was stented. This was a graft that was placed from the aorta to the previous graft stump and was supplying the 2nd obtuse marginal of the posterolateral branch and the occlusion was from the previous graft all the way into the distal PLV branch. This was addressed with multiple stents. At that time, he also had stenting of the ostium of the LAD into the proximal portion because there was a tight stenosis supplying the diagonal branch, which apparently was not grafted. He has 2 other vein grafts, one to the distal RCA and one to the first obtuse marginal were patent and the MONTESINOS to LAD was patent. He has not seen a bed operator in several years. He takes Repatha, carvedilol, and also a beta wilma. He came into the hospital with increasing shortness of breath, was found to have a yoq-ZN-wwzbeutxk AZ and mild congestive heart failure. After stabilizing him, he was advised cardiac cath after due discussion regarding risks, benefits, and options. I obtained the records from [facility] in [place], where he had his procedures performed in 2004. PROCEDURE NOTE: Under local anesthesia and strict aseptic precautions, a 6-Persian introducer was placed in the right femoral artery. I used a standard left Megan catheter to selectively cannulate the left coronary artery. I used a Franck catheter for the MONTESINOS injection. I used AR2 catheter for selective injection of the jamul RCA, the 3 vein grafts. I also used a pigtail catheter to check LV pressures. Following this, I decided to perform PCI of the jamul diagonal branch, which had a 90% stenosis and there was a small branch that came off, which was a secondary branch that was about 1 mm or less. I performed PCI in the same setting. CARDIAC CATHETERIZATION FINDINGS: The left ventricular end-diastolic pressure was about 22 mmHg without any gradient across aortic valve. CORONARY ANGIOGRAPHY FINDINGS: RIGHT CORONARY ARTERY: Dominant vessel, has diffuse disease, distally 70% stenosis, bifurcates into PDA and PLV, and there is a competitive flow into the distal RCA, which is diffusely diseased. LEFT MAIN CORONARY ARTERY: Short, patent vessel that seems to supply only the LAD. Left main actually appears to supply the LAD only. LEFT ANTERIOR DESCENDING CORONARY ARTERY: This vessel seems to be occluded after diagonal branch and the injection of the left system opacifies only the diagonal branch, which is of fair caliber. The LAD is grafted somewhat distally on the MONTESINOS graft. It is a small secondary branch that has also a diffuse disease and ostial narrowing as it comes off from the major diagonal branch. There is a 90% stenosis in the body of the major diagonal branch. The origin of the LAD, which was stented in 2004 is patent with decent flow. There is an 80% to 90% stenosis in the major diagonal branch in the midportion at the origin of the secondary branch. LEFT POSTERIOR CIRCUMFLEX CORONARY ARTERY: This vessel is not seen, probably has a flush ostial occlusion. SAPHENOUS VEIN GRAFT TO THE DISTAL RCA: This graft is widely patent at its origin, course, insertion site and opacifies the 2 branches of RCA, has minor diffuse disease. SAPHENOUS VEIN GRAFT TO THE FIRST OBTUSE MARGINAL: This graft is widely patent at its origin, course, insertion site and opacified obtuse marginal is diffusely diseased. LEFT INTERNAL MAMMARY ARTERY GRAFT TO LAD: This graft is widely patent, opacifies the distal aspect of the LAD, but the proximal flow is somewhat limited. Distal to the attachment, there is mild diffuse disease in the LAD as it runs towards the apex. The grafting is done somewhat to the distal aspect of the LAD. SAPHENOUS VEIN GRAFT TO THE PLV BRANCH OF CIRCUMFLEX: This graft is probably totally occluded seen as a stump. FINAL IMPRESSION: This patient has elevated filling pressures, no gradient, significant disease involving the circumflex, which is totally occluded and mid LAD totally occluded. Diagonal branch has a 90% narrowing, which appears to be progression of disease compared to the old catheterization report. RCA has diffuse disease distally. There is a tight stenosis and competitive flow. The vein graft to the first obtuse marginal and vein graft to the RCA are widely patent with decent flow, but diffuse disease within the jamul vessels beyond insertion site. MONTESINOS to LAD is patent, but the attachment is somewhat distally. There is mild diffuse disease in the LAD. One of the vein graft to the PLV branch is probably totally occluded, not seen and some stump is noted. RECOMMENDATIONS: I recommended PCI of the major diagonal branch and perform this in the same setting. PCI PROCEDURE DETAILS: I used a standard JL4 guide catheter to cannulate the left coronary artery. The whisper wire was used to cross the lesion. Wire was kept in the small diagonal branch just at the site of 90% stenosis. I had difficulty advancing into the diagonal because of heavy calcification. I used a super cross with 45 degree and a run-through wire, long wire. With this, I was able to cross and wire was kept distally. I tried to advance a 2.0 balloon, I had difficulty. I used a 1.5 NC Trek balloon. With this, I made a first inflation into the major diagonal branch. Then I used a 2.0 and subsequently 2.5 caliber NC Trek balloon of 15 mm length with decent improvement. I then used a 3.0 caliber NC Trek balloon and was able to dilate that area with improvement. I then used a 3.0-caliber 12-mm long shockwave balloon and performed lithotripsy at and before the lesion. Three treatments were given. Subsequently, I tried to advance the stent, but I had a lot of difficulty. I then dilated the proximal portion with a 3.0 caliber NC Trek balloon and advanced an 18 mm long 2.0 caliber Anibal stent with the help of a GuideLiner and I deployed the stent at 14 atmospheres. I post dilated this with a 2.5 caliber 15 mm NC Trek balloon. Excellent angiographic result was achieved, but the small tiny secondary branch that was jailed was occluded. The patient had mild chest discomfort. No EKG changes. Excellent angiographic result was achieved. He received 20 mg of Lasix intravenously. He received a 6000 units of heparin and ACT during the procedure was 273. Excellent angiographic result was achieved. A tiny branch was jailed with sluggish flow. Results were discussed with the patient and several family members. The sheath was taken out, and Angio-Seal device used to secure hemostasis, and he was sent to the room in a stable condition. Excellent angiographic result was achieved. The patient will be optimized in terms of heart failure treatment and discharged in 48 hours if stable. Ejection fraction is in the 35% to 40% range and if it improves, he will not need an ICD. I discussed this with the patient and family. He was sent to the room in a stable condition. MMAMISHL / INOCENCIO: [id number] /
[2022-07-14] MEDS: PANTOPRAZOLE 40 MG TABLET PO SCH (06:29)
[2022-07-14] MEDS ORDERED: lisinopriL 10 MG TAB PO SCH (09:00)
[2022-07-14] MEDS: IPRATROPIUM-ALBUTEROL 3 ML NEB INHALATION SCH ×4 (09:11→22:11)
[2022-07-14 09:37] LABS: Basophils % (A) 0 %; Eosinophils % (A) 0 %; HCT 47.2 % (39.0-53.0); HGB 15.2 gm/dL (13.0-17.5); Lymphocytes # (A) 2.1 k/uL (1.0-4.8); Lymphocytes % (A) 16 %; MCH 29.5 pg (25.0-35.0); MCHC 32.2 g/dL (31.0-37.0); MCV 91.7 fL (80.0-100.0); Mean Platelet Volume 9.2; Monocytes # (A) 0.5 k/uL (0-1.0); Monocytes % (A) 4 %; Neutrophils # (A) 10.1 k/uL (1.3-7.7); Neutrophils % (A) 79 %; Platelet Count 229 k/uL (150-450); RBC 5.15 m/uL (4.30-5.90); RDW 13.4 % (11.5-15.5); WBC 12.8 k/uL (3.8-10.6)
[2022-07-14 09:57] LABS: African American GFR (CKD) >90 (>60 ml/min/1.73 sqM); Anion Gap 14 mmol/L; Blood Urea Nitrogen 25 mg/dL (9-20); Calcium 9.2 mg/dL (8.4-10.2); Carbon Dioxide 24 mmol/L (22-30); Chloride 102 mmol/L (98-107); Glucose 164 mg/dL (74-99); Non-African American GFR(CKD) 85 (>60 ml/min/1.73 sqM); Potassium 3.9 mmol/L (3.5-5.1); Sodium 140 mmol/L (137-145)
--- NOTE | 2022-07-14 09:57 | XR ---
EXAMINATION TYPE: XR chest 2V DATE OF EXAM: 07/14/2022 9:50 AM COMPARISON: Chest radiographs from 07/11/2022 TECHNIQUE: XR chest 2V Frontal and lateral views of the chest. CLINICAL INDICATION:Male, 71 years old with history of SOB; FINDINGS: Lungs/Pleura: Prominent interstitial lung markings are seen scattered throughout the lungs with laina ening of the diaphragm and increased lucency of the lung apices. No evidence of focal consolidation, pneumothorax or pleural effusion. Pulmonary vascularity: Unremarkable. Heart/mediastinum: Cardiomediastinal silhouette is enlarged and stable. Musculoskeletal: No acute osseous pathology. Midline sternotomy wires and surgical clips project over the mediastinum. Other findings: None IMPRESSION: 1. No acute cardiopulmonary disease process. 2. COPD changes.
[2022-07-14] MEDS: ISOSORBIDE MONONITRATE ER 30 MG TAB.ER.24H PO SCH (10:22)
[2022-07-14] MEDS: MONTELUKAST 10 MG TAB PO SCH (10:22)
[2022-07-14] MEDS: CLOPIDOGREL 75 MG TAB PO SCH (10:22)
[2022-07-14] MEDS: lisinopriL 10 MG TAB PO SCH ×2 (10:22→20:52)
[2022-07-14] MEDS: ASPIRIN 81 MG PO SCH (10:22)
[2022-07-14] MEDS: METOPROLOL TARTRATE 50 MG TAB PO SCH ×3 (10:22→20:51)
[2022-07-14] MEDS: FUROSEMIDE 40 MG TAB PO SCH (10:22)
[2022-07-14] MEDS: FLUTICASONE 50MCG/SPRAY NASAL 16GM EA NOSTRIL SCH (10:23)
[2022-07-14] MEDS: AZITHROMYCIN 500 MG in SODIUM CHLORIDE 0.9% 250 ML IVPB SCH (10:23)
--- NOTE | 2022-07-14 10:44 | P.PN ---
Subjective Progress Note Date: 07/14/22 HISTORY OF PRESENT ILLNESS: This is a 71-year-old male who presented to the hospital with a chief complaint of upper respiratory symptoms. Patient was found to have a NSTEMI. He is scheduled to undergo cardiac catheterization today with Dr. Segura. Patient currently denies any chest pain or pressure. He denies shortness of breath. Vital signs are stable. Echocardiogram completed revealing ejection fraction 35-40%, mild pulmonary hypertension, mild mitral regurgitation, [id number] tricuspid regurgitation. *Records reviewed from [facility]. Patient had his first CABG in 1985. He underwent a second CABG in 2004. The patient continued to have chest pain after his second CABG. He underwent cardiac catheterization in September 2004 revealing patent MONTESINOS to LAD. Occluded SVG to OM1, patent SVG to OM 2, and patent SVG to RCA. Patient underwent stenting of the SVG to the OM1. He also underwent stenting of the ostium and proximal LAD supplying the diagonal which was a [place] vessel. 07/14/2022 Patient is status post cardiac catheterization with Dr. Segura. Patient underwent stenting of the major diagonal branch of the left anterior descending artery with a drug-eluting stent. Patient examined this morning at the bedside. He denies chest pain or pressure. He reports shortness of breath this morning. He reports a productive cough with greenish brown sputum. PHYSICAL EXAM: VITAL SIGNS: Reviewed. GENERAL: Well-developed in no acute distress. NECK: Supple. No JVD or thyromegaly LUNGS: Respirations even and unlabored. Lungs essentially clear to auscultation bilaterally. HEART: Regular rate and rhythm. S1 and S2 heard. EXTREMITIES: Normal range of motion. No clubbing or cyanosis. Peripheral puls es intact. No lower extremity edema ASSESSMENT: Upper respiratory infection Non-STEMI, status post PCI of the diagonal branch of LAD History of coronary artery disease with previous CABG 2 in 1985 and 2004 and subsequent stenting Hypertension Hyperlipidemia, on Repatha outpatient Ischemic cardiomyopathy Runs of paroxysmal atrial tachycardia PLAN: Continue dual antiplatelet therapy with aspirin and Plavix Continue Repatha Discontinue IV Lasix. Begin oral Lasix 40 mg in the morning and 20 mg in the afternoon Obtain chest x-ray Consult pulmonary for further evaluation of shortness of breath Further recommendations pending patient course Nurse practitioner note has been reviewed by physician. Signing provider agrees with the documented findings, assessment, and plan of care. Objective - Vital Signs Vital signs: Vital Signs Temp 97.8 F 07/14/22 08:00 Pulse 85 07/14/22 09:22 Resp 18 07/14/22 08:00 BP 136/79 07/14/22 08:00 Pulse Ox 96 07/14/22 09:14 FiO2 Intake & Output 07/13/22 07/14/22 07/14/22 18:59 06:59 18:59 Intake Total 930 540 Output Total 450 1200 Balance 480 -1200 540 Weight 89.5 kg Intake: IV 200 Oral 730 540 Output: Urine 450 1200 Straight 800 Other: Voiding Method Toilet # Voids 1 - Labs CBC & Chem 7: 07/14/22 08:59 07/14/22 08:59 Labs: Abnormal Lab Results - Last 24 Hours (Table) 07/13/22 07/13/22 07/14/22 Range/Units 09:14 09:14 08:59 WBC (3.8-10.6) k/uL Neutrophils # (1.3-7.7) k/uL APTT 38.6 H (22.0-30.0) sec BUN 23 H 25 H (9-20) mg/dL Glucose 172 H 164 H (74-99) mg/dL 07/14/22 Range/Units 08:59 WBC 12.8 H (3.8-10.6) k/uL Neutrophils # 10.1 H (1.3-7.7) k/uL APTT (22.0-30.0) sec BUN (9-20) mg/dL Glucose (74-99) mg/dL Microbiology - Last 24 Hours (Table) 07/11/22 16:38 Blood Culture - Preliminary Blood
[2022-07-14 12:24] VITALS: BMI 26.7
--- NOTE | 2022-07-14 12:30 | P.CNPUL ---
History of Present Illness Consult date: 07/14/22 Requesting physician: Samuel Bermudez Reason for consult: dyspnea, cough, COPD Chief complaint: Shortness of breath, cough, chest congestion. History of present illness: Pulmonary consult dated 07/14/2022. 71 -year-old male who presented to the emergency department on July 11, complaining of shortness of breath, and cough. The patient was recently added different hospital, and was diagnosed as having bronchitis, placed on antibiotics. He was apparently told that he also could have pneumonia. More recently, the patient developed fever, and was taking some Tylenol and Motrin. In addition, the patient complained of chest pain. The patient does have a history of cardiac disease, and had a bypass grafting at age 54. On this admission, the patient underwent cardiac catheterization, on July 13, and had a stent placed in his LAD. We were consulted today, for possible COPD/bronchitis, as the patient has a history of 20 years of tobacco use, at 2-3 packs a day. He is currently on room air. White count 12.8, with a normal hemoglobin, hematocrit, and platelet count. Sodium 140, potassium 3.9, chlorides 102, CO2 24, anion gap 14, BUN 25, and creatinine 0.91. His troponin was 4.460. N- terminal proBNP was 1660. The patient's chest x-ray was consistent with COPD. There was no acute disease noted. Review of Systems REVIEW OF SYSTEMS: CONSTITUTIONAL: [Negative.] NEUROLOGIC: [ Negative.] HEENT: [ Negative.] CARDIAC: Chest pain. PULMONARY: Shortness of breath, cough, chest congestion. GI: [Negative.] : [Negative.] RHEUMATOLOGIC: [ Negative.] IMMUNOLOGIC: [ Negative.] ENDOCRINE: [Negative. ] DERMATOLOGIC: [Negative.] Past Medical History Past Medical History: Coronary Artery Disease (CAD), Chest Pain / Angina, Hyperlipidemia, Hypertension, Myocardial Infarction (RI), Osteoarthritis (OA), Pneumonia Last Myocardial Infarction Date:: 2005 History of Any Multi-Drug Resistant Organisms: None Reported Past Surgical History: Coronary Bypass/CABG, Heart Catheterization With Stent Additional Past Surgical History / Comment(s): CABG X2 Past Anesthesia/Blood Transfusion Reactions: No Reported Reaction Date of Last Stent Placement:: UNKNOWN Smoking Status: Former smoker Medications and Allergies Home Medications Medication Instructions Recorded Confirmed Type Albuterol Inhaler [Ventolin Hfa 2 puff INHALATION RT-Q6H PRN 07/11/22 07/11/22 History Inhaler] Clopidogrel [Plavix] 75 mg PO DAILY 07/11/22 07/11/22 History Evolocumab [Repatha Sureclick] 140 mg SQ Q14D 07/11/22 07/11/22 History Fluticasone Nasal [place] [Flonase 1 spray EA NOSTRIL DAILY 07/11/22 07/11/22 History Nasal [place]] Metoprolol Succinate (ER) [Toprol 50 mg PO DAILY 07/11/22 07/11/22 History Xl] Montelukast [Singulair] 10 mg PO DAILY 07/11/22 07/11/22 History Omeprazole 20 mg PO DAILY 07/11/22 07/11/22 History Tamsulosin [Flomax] 0.4 mg PO DAILY 07/11/22 07/11/22 History lisinopriL [Zestril] 2.5 mg PO DAILY 07/11/22 07/11/22 History Allergies Allergy/AdvReac Type Severity Reaction Status Date / Time niacin Allergy Unknown Verified 07/11/22 18:58 [From Niaspan Extended-Release] Physical Exam Osteopathic Statement: *. No significant issues noted on an osteopathic str uctural exam other than those noted in the History and Physical/Consult. Vitals: Vital Signs Temp Pulse Pulse Resp BP BP Pulse Ox 07/14/22 09:22 85 07/14/22 09:14 96 07/14/22 09:12 83 07/14/22 08:00 97.8 F 76 18 136/79 98 07/14/22 04:00 97.8 F 81 18 117/75 97 07/14/22 00:00 98.0 F 75 18 107/68 98 07/13/22 21:42 84 07/13/22 21:28 72 07/13/22 20:00 97.9 F 74 18 129/76 96 07/13/22 15:47 18 07/13/22 15:17 18 159/89 07/13/22 15:02 18 159/91 07/13/22 14:47 18 155/93 07/13/22 14:32 18 162/88 Intake and Output 07/13/22 07/14/22 07/14/22 22:59 06:59 14:59 Intake Total 730 540 Output Total 1250 400 Balance -520 -400 540 Intake: Oral 730 540 Output: Urine 1250 400 Straight 800 Other: Voiding Method Toilet # Voids 1 Weight 89.5 kg No acute distress, oriented 3. Room air saturation is 96%. No conversational dyspnea. No use of accessory muscles. No audible wheezing. HEENT examination is grossly unremarkable. Neck supple. Full range of motion. No adenopathy thyromegaly or neck vein distention. Cardiovascular examination reveals regular rhythm rate. S1-S2 normal. No S3 or S4. No discernible murmur noted. Heart rate 85 bpm. Lungs reveal scattered rhonchi. No wheezes. No crackles. Slight prolongation on forced maneuver. Adventitious lung sounds are more prominent on forced maneuver. Abdomen soft bowel sounds are heard. No masses or tenderness. Extremities are intact. No cyanosis clubbing or edema. Skin is without rash or lesion. Neurologic examination is brief but nonfocal. Results - Laboratory Findings CBC and BMP: 07/14/22 08:59 07/14/22 08:59 PT/INR, D-dimer PT 11.5 sec (9.0-12.0) 07/12/22 09:14 INR 1.1 (<1.2) 07/12/22 09:14 Abnormal lab findings: Abnormal Labs 07/11/22 07/11/22 07/11/22 16:42 16:42 16:42 WBC 11.1 H Neutrophils # 9.5 H Lymphocytes # 0.8 L APTT Carbon Dioxide 21 L BUN Glucose 128 H Troponin I 0.096 H* Urine Ketones 07/11/22 07/11/22 07/12/22 19:00 20:31 00:47 WBC Neutrophils # Lymphocytes # APTT Carbon Dioxide BUN Glucose Troponin I 4.160 H* 7.620 H* Urine Ketones 1+ H 07/12/22 07/12/22 07/12/22 00:47 09:14 12:32 WBC Neutrophils # 8.9 H Lymphocytes # APTT 62.7 H Carbon Dioxide BUN Glucose Troponin I 4.460 H* Urine Ketones 07/12/22 07/13/22 07/13/22 23:37 09:14 09:14 WBC Neutrophils # Lymphocytes # APTT 54.1 H 38.6 H Carbon Dioxide BUN 23 H Glucose 172 H Troponin I Urine Ketones 07/14/22 07/14/22 08:59 08:59 WBC 12.8 H Neutrophils # 10.1 H Lymphocytes # APTT Carbon Dioxide BUN 25 H Glucose 164 H Troponin I Urine Ketones - Diagnostic Findings Chest x-ray: image reviewed Assessment and Plan Assessment: Probable chronic obstructive pulmonary disease, from previous heavy tobacco use. Non-ST segment elevation myocardial infarction, status post PCI, and stenting of the LAD. History of CAD with previous CABG, 1985 and 2004. Prior history of heavy tobacco use, for 20 years, at 2-3 packs a day. History of hypertension. History of hyperlipidemia. History of ischemic cardiomyopathy. Paroxysmal atrial tachycardia. Plan: Plan dated 07/14/2022. The patient is placed on albuterol sulfate and ipratropium bromide, 4 times a day and when necessary. In addition, we added Pulmicort 1 mg twice a day, mixed with formoterol, 20 g, twice a day. Also, we add Solu-Medrol. Currently, the patient's on antibiotics. We will check a pro-calcitonin level. If this is normal, we will de-escalate or discontinue antibiotics. Additional recommendations and suggestions are forthcoming. The patient will need follow- up with us in the office, for complete PFTs. Time with Patient: Greater than 30
[2022-07-14] MEDS: TAMSULOSIN 0.4 MG CAP.ER.24H PO SCH (18:50)
[2022-07-14] MEDS: FUROSEMIDE 20 MG TAB PO SCH (18:51)
[2022-07-14] MEDS: methylPREDNISolone SOD SUCCI 40 MG/ML 1 ML VIAL IV SCH ×2 (18:51→23:09)
[2022-07-14] MEDS: BUDESONIDE 1 MG/2 ML NEBU INHALATION SCH (22:11)
[2022-07-14] MEDS: FORMOTEROL FUMARATE 20 MCG/2 ML NEBU INHALATION SCH (22:11)
--- NOTE | 2022-07-15 02:14 | PN ---
PROGRESS NOTE DATE OF SERVICE: 07/13/2022 CHIEF COMPLAINT: Shortness of breath, fever, and chest pain. HISTORY OF PRESENT ILLNESS: This gentleman is doing well. He is taken to the [facility] where he was found to have an LAD obstruction and this was stented. At present time, he seems to be doing well. He is not having any shortness of breath, but he is just complaining of some substernal chest pain. PHYSICAL EXAMINATION: CHEST: Clear. CARDIAC: Normal. VITAL SIGNS: Normal. IMPRESSION: 1. Status post NSTEMI. 2. Chest pain. 3. Bronchitis. 4. FUO. PLAN: EKG will be repeated and Cardiology would be notified of his continued chest discomfort. MMODL / IJN: [id number] /
[2022-07-15] MEDS: methylPREDNISolone SOD SUCCI 40 MG/ML 1 ML VIAL IV SCH ×4 (05:37→23:12)
[2022-07-15] MEDS: PANTOPRAZOLE 40 MG TABLET PO SCH (05:41)
[2022-07-15 07:38] LABS: African American GFR (CKD) >90 (>60 ml/min/1.73 sqM); Anion Gap 11 mmol/L; Blood Urea Nitrogen 22 mg/dL (9-20); Calcium 8.9 mg/dL (8.4-10.2); Carbon Dioxide 24 mmol/L (22-30); Chloride 101 mmol/L (98-107); Glucose 237 mg/dL (74-99); Non-African American GFR(CKD) 89 (>60 ml/min/1.73 sqM); Potassium 4.4 mmol/L (3.5-5.1); Sodium 136 mmol/L (137-145)
[2022-07-15] MEDS: ISOSORBIDE MONONITRATE ER 30 MG TAB.ER.24H PO SCH (08:48)
[2022-07-15] MEDS: CLOPIDOGREL 75 MG TAB PO SCH (08:48)
[2022-07-15] MEDS: METOPROLOL TARTRATE 50 MG TAB PO SCH ×3 (08:48→19:49)
[2022-07-15] MEDS: MONTELUKAST 10 MG TAB PO SCH (08:48)
[2022-07-15] MEDS: lisinopriL 10 MG TAB PO SCH ×2 (08:48→19:49)
[2022-07-15] MEDS: ASPIRIN 81 MG PO SCH (08:51)
[2022-07-15] MEDS: FUROSEMIDE 40 MG TAB PO SCH (08:51)
[2022-07-15] MEDS: FLUTICASONE 50MCG/SPRAY NASAL 16GM EA NOSTRIL SCH (08:52)
[2022-07-15] MEDS ORDERED: Evolocumab [Repatha Sureclick] 140 MG/ML Each SQ SCH (09:00)
[2022-07-15] MEDS: FORMOTEROL FUMARATE 20 MCG/2 ML NEBU INHALATION SCH ×2 (09:35→21:42)
[2022-07-15] MEDS: IPRATROPIUM-ALBUTEROL 3 ML NEB INHALATION SCH ×4 (09:35→21:42)
[2022-07-15] MEDS: BUDESONIDE 1 MG/2 ML NEBU INHALATION SCH ×2 (09:35→21:42)
[2022-07-15] MEDS: AZITHROMYCIN 500 MG in SODIUM CHLORIDE 0.9% 250 ML IVPB SCH (09:36)
--- NOTE | 2022-07-15 12:12 | P.PN ---
Subjective This is a pleasant 71 years old male who presents on 07/11 with chest pain. Found to have elevated troponin significantly and he was diagnosed with non-STEMI, who was treated with anticoagulation. He status post PCI to LAD and currently was placed on dual antiplatelet therapy with Plavix and aspirin. Also patient has been complaining of from respiratory difficulty secondary to COPD exacerbation with cough and antegrade phlegm, patient is currently on ceftriaxone on some omeprazole 40 mg. This morning he was feeling better with less dyspnea although he was still coughing. But that does not bother him a lot. He is hemodynamically stable, fever present on admission has resolved. Echocardiogram showed ejection fraction 35-40% with pulmonary hypertension He has some urinary retention more than 700 repeat bladder scan was negative with only 150s, currently is on Flomax, we'll go to recheck his bladder scan given his some difficulty with urination. Objective - Vital Signs Vital signs: Vital Signs Temp 98.2 F 07/15/22 08:45 Pulse 76 07/15/22 09:59 Resp 18 07/15/22 08:45 BP 142/73 07/15/22 08:45 Pulse Ox 99 07/15/22 09:35 FiO2 Intake & Output 07/14/22 07/15/22 07/15/22 18:59 06:59 18:59 Intake Total 1020 10 420 Output Total 175 Balance 1020 -165 420 Weight 89.5 kg 87.5 kg Intake: IV 10 Invasive Line 1 10 Oral 1020 420 Output: Urine 175 Other: Voiding Method Toilet Toilet Urinal - Exam GENERAL: The patient is alert and oriented x3, not in any acute distress. Well developed, well nourished. HEENT: Pupils are round and equally reacting to light. EOMI. No scleral icterus. No conjunctival pallor. Normocephalic, atraumatic. No pharyngeal erythema. No thyromegaly. CARDIOVASCULAR: S1 and S2 present. No murmurs, rubs, or gallops. PULMONARY: Chest is clear to auscultation, no wheezing or crackles. ABDOMEN: Soft, nontender, nondistended, normoactive bowel sounds. No palpable organomegaly. MUSCULOSKELETAL: No joint swelling or deformity. EXTREMITIES: No cyanosis, clubbing, or pedal edema. NEUROLOGICAL: Gross neurological examination did not reveal any focal deficits. SKIN: No rashes. no petechiae. - Labs CBC & Chem 7: 07/14/22 08:59 07/15/22 06:57 Labs: Abnormal Lab Results - Last 24 Hours (Table) 07/14/22 07/15/22 Range/Units 08:59 06:57 Sodium 136 L (137-145) mmol/L BUN 22 H (9-20) mg/dL Glucose 237 H (74-99) mg/dL Procalcitonin 1.68 H (0.02-0.09) ng/mL Microbiology - Last 24 Hours (Table) 07/11/22 16:38 Blood Culture - Preliminary Blood Assessment and Plan Assessment: Acute and STEMI status post PCI to LAD Acute COPD exacerbation Mild urinary retention, improved Hypertension Ischemic cardiomyopathy with ejection fraction of 35-40% Possible acute tracheobronchitis Plan: Continue with dual antiplatelet therapy, aspirin and Plavix Continue with ceftriaxone Continue with IV Solu-Medrol Continue with oral Lasix, metoprolol Check bladder scan. Patient currently on [facility] pulmonary consult. Labs and medication were reviewed.. Continue same treatment. Continue with symptomatic treatment. Resume home medication. Monitor labs and vitals. DVT and GI prophylaxis. Further recommendations as per clinical course of the patient DVT prophylaxis: Subcutaneous heparin GI Prophylaxis: Ppi PT/OT: Pending Prognosis is guarded
--- NOTE | 2022-07-15 13:24 | P.PN ---
Subjective Progress Note Date: 07/15/22 71 -year-old male who presented to the emergency department on July 11, complaining of shortness of breath, and cough. The patient was recently added different hospital, and was diagnosed as having bronchitis, placed on antibiotics. He was apparently told that he also could have pneumonia. More recently, the patient developed fever, and was taking some Tylenol and Motrin. In addition, the patient complained of chest pain. The patient does have a history of cardiac disease, and had a bypass grafting at age 54. On this admission, the patient underwent cardiac catheterization, on July 13, and had a s tent placed in his LAD. We were consulted today, for possible COPD/bronchitis, as the patient has a history of 20 years of tobacco use, at 2-3 packs a day. He is currently on room air. White count 12.8, with a normal hemoglobin, hematocrit, and platelet count. Sodium 140, potassium 3.9, chlorides 102, CO2 24, anion gap 14, BUN 25, and creatinine 0.91. His troponin was 4.460. N- terminal proBNP was 1660. The patient's chest x-ray was consistent with COPD. There was no acute disease noted. The patient is seen today 07/15/2022 in follow-up in the regular medical floor. He is currently resting comfortably in bed. Awake and alert in no acute distress. Maintaining good O2 saturations in the mid 90s on room air. Afebrile. Hemodynamically stable. Sodium 136. Potassium 4.4. Bicarb 24. BUN 22. Creatinine 0.83. proCalcitonin was 1.68. He is continued on DuoNeb inhalations, Pulmicort and Perforomist inhalations, IV Solu-Medrol. Objective - Vital Signs Vital signs: Vital Signs Temp 98.3 F 07/15/22 12:00 Pulse 78 07/15/22 12:22 Resp 18 07/15/22 12:00 BP 113/60 07/15/22 12:00 Pulse Ox 95 07/15/22 12:00 FiO2 Intake & Output 07/14/22 07/15/22 07/15/22 18:59 06:59 18:59 Intake Total 1020 10 420 Output Total 175 Balance 1020 -165 420 Weight 89.5 kg 87.5 kg Intake: IV 10 Invasive Line 1 10 Oral 1020 420 Output: Urine 175 Other: Voiding Method Toilet Toilet Urinal - Exam GENERAL EXAM: Alert, pleasant 71-year-old gentleman, on room air, comfortable in no apparent distress. HEAD: Normocephalic. EYES: Normal reaction of pupils, equal size. NOSE: Clear with pink turbinates. THROAT: No erythema or exudates. NECK: No masses, no JVD. CHEST: No chest wall deformity. LUNGS: Equal air entry with bilateral end expiratory wheeze, diminished. CVS: S1 and S2 normal with no audible murmur, regular rhythm. ABDOMEN: No hepatosplenomegaly, normal bowel sounds, no guarding or rigidity. SPINE: No scoliosis or deformity SKIN: No rashes CENTRAL NERVOUS SYSTEM: No focal deficits, tone is normal in all 4 extremities. EXTREMITIES: There is no peripheral edema. No clubbing, no cyanosis. Peripheral pulses are intact. - Labs CBC & Chem 7: 07/14/22 08:59 07/15/22 06:57 Labs: Abnormal Lab Results - Last 24 Hours (Table) 07/14/22 07/15/22 Range/Units 08:59 06:57 Sodium 136 L (137-145) mmol/L BUN 22 H (9-20) mg/dL Glucose 237 H (74-99) mg/dL Procalcitonin 1.68 H (0.02-0.09) ng/mL Microbiology - Last 24 Hours (Table) 07/11/22 16:38 Blood Culture - Preliminary Blood Assessment and Plan Assessment: Acute exacerbation of suspected chronic obstructive pulmonary disease, from previous heavy tobacco use. Possible purulent tracheobronchitis. Procalcitonin 1.68. Continued on ceftriaxone. Completed azithromycin. Non-ST segment elevation myocardial infarction, status post PCI, and stenting of the LAD. History of CAD with previous CABG, 1985 and 2004. Prior history of heavy tobacco use, for 20 years, at 2-3 packs a day. History of hypertension. History of hyperlipidemia. History of ischemic cardiomyopathy. Paroxysmal atrial tachycardia. Plan: The patient was seen and evaluated Currently stable and on room air Pro-calcitonin 1.68 We'll continue antibiotics Continue DuoNeb inhalations, Pulmicort and Perforomist inhalations Continue IV Solu-Medrol Increase his activity as tolerated We'll continue to follow I have personally seen and examined the patient, performed the documentation and the assessment and plan as written. Number of minutes spent on the visit: 10.
--- NOTE | 2022-07-15 13:32 | P.PN ---
Subjective Progress Note Date: 07/15/22 HISTORY OF PRESENT ILLNESS: This is a 71-year-old male who presented to the hospital with a chief complaint of upper respiratory symptoms. Patient was found to have a NSTEMI. He is scheduled to undergo cardiac catheterization today with Dr. Segura. Patient currently denies any chest pain or pressure. He denies shortness of breath. Vital signs are stable. Echocardiogram completed revealing ejection fraction 35-40%, mild pulmonary hypertension, mild mitral regurgitation, [id number] tricuspid regurgitation. *Records reviewed from [facility]. Patient had his first CABG in 1985. He underwent a second CABG in 2004. The patient continued to have chest pain after his second CABG. He underwent cardiac catheterization in September 2004 revealing patent MONTESINOS to LAD. Occluded SVG to OM1, patent SVG to OM 2, and patent SVG to RCA. Patient underwent stenting of the SVG to the OM1. He also underwent stenting of the ostium and proximal LAD supplying the diagonal which was a [place] vessel. 07/14/2022 Patient is status post cardiac catheterization with Dr. Segura. Patient underwent stenting of the major diagonal branch of the left anterior descending artery with a drug-eluting stent. Patient examined this morning at the bedside. He denies chest pain or pressure. He reports shortness of breath this morning. He reports a productive cough with greenish brown sputum. 07/15/2022 Patient examined this morning at the bedside. Patient denies chest pain or pressure. He reports improvement in his shortness of breath. He continues to h ave a productive cough. He was seen by pulmonary yesterday and started on IV steroids. PHYSICAL EXAM: VITAL SIGNS: Reviewed. GENERAL: Well-developed in no acute distress. NECK: Supple. No JVD or thyromegaly LUNGS: Respirations even and unlabored. Lungs essentially clear to auscultation bilaterally. HEART: Regular rate and rhythm. S1 and S2 heard. EXTREMITIES: Normal range of motion. No clubbing or cyanosis. Peripheral pulses intact. No lower extremity edema ASSESSMENT: Upper respiratory infection Acute exacerbation of suspected COPD, possible purulent tracheobronchitis Non-STEMI, status post PCI of the diagonal branch of LAD History of coronary artery disease with previous CABG 2 in 1985 and 2004 and subsequent stenting Hypertension [facility] Ischemic cardiomyopathy, ejection fraction 35-40% Runs of paroxysmal atrial tachycardia Former nicotine dependence PLAN: Continue dual antiplatelet therapy with aspirin and Plavix. Continue Repatha. Continue additional cardiac medications Pulmonary following. IV steroids per pulmonary service Possible discharge in the next 24 hours Further recommendations pending patient course Nurse practitioner note has been reviewed by physician. Signing provider agrees with the documented findings, assessment, and plan of care. Objective - Vital Signs Vital signs: Vital Signs Temp 98.3 F 07/15/22 12:00 Pulse 78 07/15/22 12:22 Resp 18 07/15/22 12:00 BP 113/60 07/15/22 12:00 Pulse Ox 95 07/15/22 12:00 FiO2 Intake & Output 07/14/22 07/15/22 07/15/22 18:59 06:59 18:59 Intake Total 1020 10 420 Output Total 175 Balance 1020 -165 420 Weight 89.5 kg 87.5 kg Intake: IV 10 Invasive Line 1 10 Oral 1020 420 Output: Urine 175 Other: Voiding Method Toilet Toilet Urinal - Labs CBC & Chem 7: 07/14/22 08:59 07/15/22 06:57 Labs: Abnormal Lab Results - Last 24 Hours (Table) 07/14/22 07/15/22 Range/Units 08:59 06:57 Sodium 136 L (137-145) mmol/L BUN 22 H (9-20) mg/dL Glucose 237 H (74-99) mg/dL Procalcitonin 1.68 H (0.02-0.09) ng/mL Microbiology - Last 24 Hours (Table) 07/11/22 16:38 Blood Culture - Preliminary Blood
[2022-07-15] MEDS: FUROSEMIDE 20 MG TAB PO SCH (15:49)
[2022-07-15] MEDS: HEPARIN SODIUM,PORCINE/PF 5,000 UNIT/0.5 ML SYRINGE SQ SCH ×2 (15:49→19:49)
[2022-07-15] MEDS: TAMSULOSIN 0.4 MG CAP.ER.24H PO SCH (18:25)
[2022-07-16] MEDS: methylPREDNISolone SOD SUCCI 40 MG/ML 1 ML VIAL IV SCH (06:26)
[2022-07-16] MEDS: PANTOPRAZOLE 40 MG TABLET PO SCH (06:26)
[2022-07-16] MEDS: IPRATROPIUM-ALBUTEROL 3 ML NEB INHALATION SCH ×4 (08:51→21:05)
[2022-07-16] MEDS: BUDESONIDE 1 MG/2 ML NEBU INHALATION SCH (08:59)
[2022-07-16] MEDS: FORMOTEROL FUMARATE 20 MCG/2 ML NEBU INHALATION SCH (08:59)
[2022-07-16] MEDS: CLOPIDOGREL 75 MG TAB PO SCH (09:18)
[2022-07-16] MEDS: FUROSEMIDE 40 MG TAB PO SCH (09:18)
[2022-07-16] MEDS: ASPIRIN 81 MG PO SCH (09:18)
[2022-07-16] MEDS: METOPROLOL TARTRATE 50 MG TAB PO SCH ×3 (09:18→19:59)
[2022-07-16] MEDS: ISOSORBIDE MONONITRATE ER 30 MG TAB.ER.24H PO SCH (09:18)
[2022-07-16] MEDS: HEPARIN SODIUM,PORCINE/PF 5,000 UNIT/0.5 ML SYRINGE SQ SCH ×2 (09:18→19:59)
[2022-07-16] MEDS: FLUTICASONE 50MCG/SPRAY NASAL 16GM EA NOSTRIL SCH (09:18)
[2022-07-16] MEDS: lisinopriL 10 MG TAB PO SCH ×2 (09:19→19:59)
[2022-07-16] MEDS: MONTELUKAST 10 MG TAB PO SCH (09:19)
[2022-07-16] MEDS: predniSONE 20 MG TAB PO SCH (09:19)
--- NOTE | 2022-07-16 09:46 | P.PN ---
Subjective Progress Note Date: 07/16/22 71 -year-old male who presented to the emergency department on July 11, complaining of shortness of breath, and cough. The patient was recently added different hospital, and was diagnosed as having bronchitis, placed on antibiotics. He was apparently told that he also could have pneumonia. More recently, the patient developed fever, and was taking some Tylenol and Motrin. In addition, the patient complained of chest pain. The patient does have a history of cardiac disease, and had a bypass grafting at age 54. On this admission, the patient underwent cardiac catheterization, on July 13, and had a s tent placed in his LAD. We were consulted today, for possible COPD/bronchitis, as the patient has a history of 20 years of tobacco use, at 2-3 packs a day. He is currently on room air. White count 12.8, with a normal hemoglobin, hematocrit, and platelet count. Sodium 140, potassium 3.9, chlorides 102, CO2 24, anion gap 14, BUN 25, and creatinine 0.91. His troponin was 4.460. N- terminal proBNP was 1660. The patient's chest x-ray was consistent with COPD. There was no acute disease noted. The patient is seen today 07/15/2022 in follow-up in the regular medical floor. He is currently resting comfortably in bed. Awake and alert in no acute distress. Maintaining good O2 saturations in the mid 90s on room air. Afebrile. Hemodynamically stable. Sodium 136. Potassium 4.4. Bicarb 24. BUN 22. Creatinine 0.83. proCalcitonin was 1.68. He is continued on DuoNeb inhalations, Pulmicort and Perforomist inhalations, IV Solu-Medrol. The patient is seen today 07/16/2022 in follow-up on the regular medical floor. He is sitting up in bed. Awake and alert in no acute distress. Maintaining O2 saturations in the mid to upper 90s on room air. He's been afebrile. Hemodynamically stable. No new labs today. He is continued on DuoNeb inhalations, Symbicort, prednisone taper. Antibiotics in the form of ceftriaxone. Remains on oral diuretics. Heparin for DVT prophylaxis. Objective - Vital Signs Vital signs: Vital Signs Temp 98.4 F 07/16/22 08:10 Pulse 86 07/16/22 09:13 Resp 17 07/16/22 08:10 BP 151/90 07/16/22 08:10 Pulse Ox 98 07/16/22 08:55 FiO2 Intake & Output 07/15/22 07/16/22 07/16/22 18:59 06:59 18:59 Intake Total 718 480 Output Total 233 Balance 485 480 Weight 87.8 kg Intake: Oral 718 480 Output: Post Void Residual 233 Other: Voiding Method Toilet Urinal - Exam GENERAL EXAM: Alert, anxious 71-year-old gentleman, on room air, comfortable in no apparent distress. HEAD: Normocephalic. EYES: Normal reaction of pupils, equal size. NOSE: Clear with pink turbinates. THROAT: No erythema or exudates. NECK: No masses, no JVD. CHEST: No chest wall deformity. LUNGS: Equal air entry with bilateral end expiratory wheeze, diminished. CVS: S1 and S2 normal with no audible murmur, regular rhythm. ABDOMEN: No hepatosplenomegaly, normal bowel sounds, no guarding or rigidity. SPINE: No scoliosis or deformity SKIN: No rashes CENTRAL NERVOUS SYSTEM: No focal deficits, tone is normal in all 4 extremities. EXTREMITIES: There is no peripheral edema. No clubbing, no cyanosis. Flakita pheral pulses are intact. - Labs CBC & Chem 7: 07/14/22 08:59 07/15/22 06:57 Labs: Microbiology - Last 24 Hours (Table) 07/11/22 16:38 Blood Culture - Preliminary Blood Assessment and Plan Assessment: Acute exacerbation of suspected chronic obstructive pulmonary disease, from p revious heavy tobacco use. Possible purulent tracheobronchitis. Chest x-ray revealed no acute pulmonary process per Procalcitonin 1.68. Continued on ceftriaxone. Completed azithromycin Non-ST segment elevation myocardial infarction, status post PCI, and stenting of the LAD History of CAD with previous CABG, 1985 and 2004 Prior history of heavy tobacco use, for 20 years, at 2-3 packs a day History of hypertension History of hyperlipidemia History of ischemic cardiomyopathy Paroxysmal atrial tachycardia Plan: The patient was seen and evaluated Currently stable and on room air Continue DuoNeb inhalations, and Symbicort Complete a prednisone taper Cleared for discharge from the pulmonary standpoint Follow-up in our office in 1 week I have personally seen and examined the patient, performed the documentation and the assessment and plan as written. Number of minutes spent on the visit: 10.
--- NOTE | 2022-07-16 11:51 | P.PN ---
Subjective Progress Note Date: 07/16/22 HISTORY OF PRESENT ILLNESS: This is a 71-year-old male who presented to the hospital with a chief complaint of upper respiratory symptoms. Patient was found to have a NSTEMI. He is scheduled to undergo cardiac catheterization today with Dr. Segura. Patient currently denies any chest pain or pressure. He denies shortness of breath. Vital signs are stable. Echocardiogram completed revealing ejection fraction 35-40%, mild pulmonary hypertension, mild mitral regurgitation, [id number] tricuspid regurgitation. *Records reviewed from [facility]. Patient had his first CABG in 1985. He underwent a second CABG in 2004. The patient continued to have chest pain after his second CABG. He underwent cardiac catheterization in September 2004 revealing patent MONTESINOS to LAD. Occluded SVG to OM1, patent SVG to OM 2, and patent SVG to RCA. Patient underwent stenting of the SVG to the OM1. He also underwent stenting of the ostium and proximal LAD supplying the diagonal which was a [place] vessel. 07/14/2022 Patient is status post cardiac catheterization with Dr. Segura. Patient underwent stenting of the major diagonal branch of the left anterior descending artery with a drug-eluting stent. Patient examined this morning at the bedside. He denies chest pain or pressure. He reports shortness of breath this morning. He reports a productive cough with greenish brown sputum. 07/15/2022 Patient examined this morning at the bedside. Patient denies chest pain or pressure. He reports improvement in his shortness of breath. He continues to h ave a productive cough. He was seen by pulmonary yesterday and started on IV steroids. 07/16/2022 Patient examined this morning at the bedside. Patient denies chest pain or pressure. He currently denies shortness of breath. He reports improvement in his cough. He reports continued occasional sputum production. Vital signs are stable. PHYSICAL EXAM: VITAL SIGNS: Reviewed. GENERAL: Well-developed in no acute distress. NECK: Supple. No JVD or thyromegaly LUNGS: Respirations even and unlabored. Lungs essentially clear to auscultation bilaterally. HEART: Regular rate and rhythm. S1 and S2 heard. EXTREMITIES: Normal range of motion. No clubbing or cyanosis. Peripheral pulses intact. No lower extremity edema ASSESSMENT: Upper respiratory infection Acute exacerbation of suspected COPD, possible purulent tracheobronchitis Non-STEMI, status post PCI of the diagonal branch of LAD History of coronary artery disease with previous CABG 2 in 1985 and 2004 and subsequent stenting Hypertension Hyperlipidemia, on Repatha outpatient Ischemic cardiomyopathy, ejection fraction 35-40% Runs of paroxysmal atrial tachycardia Former nicotine dependence PLAN: Continue dual antiplatelet therapy with aspirin and Plavix. Continue Repatha. Continue additional cardiac medications Patient is stable for discharge home today from a cardiac standpoint Further recommendations pending patient course Nurse practitioner note has been reviewed by physician. Signing provider agrees with the documented findings, assessment, and plan of care. Objective - Vital Signs Vital signs: Vital Signs Temp 98.4 F 07/16/22 08:10 Pulse 86 07/16/22 09:13 Resp 17 07/16/22 08:10 BP 151/90 07/16/22 08:10 Pulse Ox 98 07/16/22 08:55 FiO2 Intake & Output 07/15/22 07/16/22 07/16/22 18:59 06:59 18:59 Intake Total 718 480 Output Total 233 Balance 485 480 Weight 87.8 kg Intake: Oral 718 480 Output: Post Void Residual 233 Other: Voiding Method Toilet Toilet Urinal Urinal - Labs CBC & Chem 7: 07/14/22 08:59 07/15/22 06:57 Labs: Microbiology - Last 24 Hours (Table) 07/11/22 16:38 Blood Culture - Preliminary Blood
[2022-07-16] MEDS: FUROSEMIDE 20 MG TAB PO SCH (16:40)
--- NOTE | 2022-07-16 16:59 | P.PN ---
Subjective This is a pleasant 71 years old male who presents on 07/11 with chest pain. Found to have elevated troponin significantly and he was diagnosed with non-STEMI, who was treated with anticoagulation. He status post PCI to LAD and currently was placed on dual antiplatelet therapy with Plavix and aspirin. Also patient has been complaining of from respiratory difficulty secondary to COPD exacerbation with cough and antegrade phlegm, patient is currently on ceftriaxone on some omeprazole 40 mg. This morning he was feeling better with less dyspnea although he was still coughing. But that does not bother him a lot. He is hemodynamically stable, fever present on admission has resolved. Echocardiogram showed ejection fraction 35-40% with pulmonary hypertension He has some urinary retention more than 700 repeat bladder scan was negative with only 150s, currently is on Flomax, we'll go to recheck his bladder scan given his some difficulty with urination. 07/16/2022 Patient is improving slowly and gradually, his breathing looks better when no c hest pain. He has no labs from today. His sutures are switched to prednisone 40 mg and Symbicort I discussed the case with the patient including his medication, he was concerned about taking aspirin at he wanted to talk to his cone classifier tender before continuing. Also he wants to talk to his PCP Dr. Bermudez who will resume the care of the patient tomorrow. Risks of dual antiplatelet therapy with aspirin and Plavix are explained for him in details including but not limited to risk of bleeding, he verbalized understanding and he agreed to continue with spray for now aspirin and Plavix. Patient is encouraged to discuss it with his cone classifier tender as well as his PCP Dr. Bermudez he agrees [facility] Lab Technician also evaluated the patient and they cleared him from their perspective The PATIENT remains on ceftriaxone. Bladder scan 233 Objective - Vital Signs Vital signs: Vital Signs Temp 98.1 F 07/16/22 16:00 Pulse 80 07/16/22 16:20 Resp 17 07/16/22 16:00 BP 121/63 07/16/22 16:00 Pulse Ox 97 07/16/22 16:00 FiO2 Intake & Output 07/15/22 07/16/22 07/16/22 18:59 06:59 18:59 Intake Total 718 1020 Output Total 233 Balance 485 1020 Weight 87.8 kg Intake: Oral 718 1020 Output: Post Void Residual 233 Other: Voiding Method Toilet Toilet Urinal Urinal - Exam GENERAL: The patient is alert and oriented x3, not in any acute distress. Well developed, well nourished. HEENT: Pupils are round and equally reacting to light. EOMI. No scleral icterus. No conjunctival pallor. Normocephalic, atraumatic. No pharyngeal erythema. No thyromegaly. CARDIOVASCULAR: S1 and S2 present. No murmurs, rubs, or gallops. PULMONARY: Chest is clear to auscultation, no wheezing or crackles. ABDOMEN: Soft, nontender, nondistended, normoactive bowel sounds. No palpable organomegaly. MUSCULOSKELETAL: No joint swelling or deformity. EXTREMITIES: No cyanosis, clubbing, or pedal edema. NEUROLOGICAL: Gross neurological examination did not reveal any focal deficits. SKIN: No rashes. no petechiae. - Labs CBC & Chem 7: 07/14/22 08:59 07/15/22 06:57 Labs: Microbiology - Last 24 Hours (Table) 07/11/22 16:38 Blood Culture - Preliminary Blood Assessment and Plan Assessment: Acute and STEMI status post PCI to LAD Acute COPD exacerbation Mild urinary retention, improved Hypertension Ischemic cardiomyopathy with ejection fraction of 35-40% Possible acute tracheobronchitis Plan: Continue with dual antiplatelet therapy, aspirin and Plavix. Patient has concerns about aspirating although he agrees to continue with that for now, informed patient it was started by his current we will defer the management of his antiplatelet therapy to the cone classifier tender and his primary PCP Dr. Bermudez will resume the care of the patient tomorrow Continue with ceftriaxone Continue with steroids, currently on prednisone Continue with oral Lasix, metoprolol Patient currently on Flomax Nitriles Lab Technician pulmonary consult has cleared the patient and that Labs and medication were reviewed.. Continue same treatment. Continue with symptomatic treatment. Resume home medication. Monitor labs and vitals. DVT and GI prophylaxis. Further recommendations as per clinical course of the trisha ent DVT prophylaxis: Subcutaneous heparin GI Prophylaxis: Ppi PT/OT: Pending Prognosis is guarded
[2022-07-16] MEDS: BENZOCAINE/MENTHOL LOZENG 1 EACH LOZENGE MUCOUS MEM PRN (17:16)
[2022-07-16] MEDS: TAMSULOSIN 0.4 MG CAP.ER.24H PO SCH (17:16)
[2022-07-16] MEDS: SYMBICORT 160-4.5 MCG INHALER INHALATION SCH (21:05)
[2022-07-17] MEDS: PANTOPRAZOLE 40 MG TABLET PO SCH (06:12)
[2022-07-17] MEDS: ISOSORBIDE MONONITRATE ER 30 MG TAB.ER.24H PO SCH (09:25)
[2022-07-17] MEDS: predniSONE 20 MG TAB PO SCH (09:25)
[2022-07-17] MEDS: MONTELUKAST 10 MG TAB PO SCH (09:28)
[2022-07-17] MEDS: METOPROLOL TARTRATE 50 MG TAB PO SCH ×3 (09:28→20:25)
[2022-07-17] MEDS: CLOPIDOGREL 75 MG TAB PO SCH (09:28)
[2022-07-17] MEDS: ASPIRIN 81 MG PO SCH (09:28)
[2022-07-17] MEDS: lisinopriL 10 MG TAB PO SCH ×2 (09:29→20:25)
[2022-07-17] MEDS: IPRATROPIUM-ALBUTEROL 3 ML NEB INHALATION SCH ×4 (09:30→21:12)
[2022-07-17] MEDS: SYMBICORT 160-4.5 MCG INHALER INHALATION SCH ×2 (09:30→21:12)
[2022-07-17] MEDS: FLUTICASONE 50MCG/SPRAY NASAL 16GM EA NOSTRIL SCH (09:32)
[2022-07-17] MEDS: FUROSEMIDE 40 MG TAB PO SCH (09:32)
[2022-07-17] MEDS: HEPARIN SODIUM,PORCINE/PF 5,000 UNIT/0.5 ML SYRINGE SQ SCH ×2 (09:32→20:26)
--- NOTE | 2022-07-17 11:34 | P.PN ---
Subjective Progress Note Date: 07/17/22 PROGRESS NOTE The patient is a 71-year-old male who presented with non-STEMI, underwent cardiac catheterization and stenting. He is feeling well this morning, ambulating without difficulties. His cough is better. He denies any dizziness, palpitations or syncope. He is feeling better. He continues to be in sinus mechanism Medications: Aspirin, Plavix 75 g daily, Lasix 40 in the morning 20 in the afternoon, isosorbide 30 mg daily, Zestril 10 mg twice a day, metoprolol 50 mg 3 times a day, Flomax, prednisone 40 mg daily,Repatha PHYSICAL EXAMINATION: Blood pressure 150/80 heart rate 70 LUNGS: Clear to auscultation HEART: Regular rate and rhythm, S1, S2. No S3. systolic ejection murmur ABDOMEN: Soft, nontender, no organomegaly EXTREMETIES: No edema IMPRESSION: 1. Status post non-STEMI and stenting of the diagonal branch 2. Status post redo CABG 3. Upper respiratory infection with bronchitis 4. History of hypertension PLAN: 1. Continue present therapy 2. Discharged home today 3. And follow-up as an outpatient Objective - Vital Signs Vital signs: Vital Signs Temp 98.0 F 07/17/22 09:23 Pulse 80 07/17/22 09:41 Resp 17 07/17/22 09:23 BP 152/83 07/17/22 09:23 Pulse Ox 96 07/17/22 09:35 FiO2 Intake & Output 07/16/22 07/17/22 07/17/22 18:59 06:59 18:59 Intake Total 1560 360 Balance 1560 360 Weight 87 kg Intake: Oral 1560 360 Other: Voiding Method Toilet Toilet Toilet Urinal Urinal Urinal - Labs CBC & Chem 7: 07/14/22 08:59 07/15/22 06:57 Labs: Microbiology - Last 24 Hours (Table) 07/11/22 16:38 Blood Culture - Final Blood
--- NOTE | 2022-07-17 13:14 | P.PN ---
Subjective Progress Note Date: 07/17/22 71 -year-old male who presented to the emergency department on July 11, complaining of shortness of breath, and cough. The patient was recently added different hospital, and was diagnosed as having bronchitis, placed on antibiotics. He was apparently told that he also could have pneumonia. More recently, the patient developed fever, and was taking some Tylenol and Motrin. In addition, the patient complained of chest pain. The patient does have a history of cardiac disease, and had a bypass grafting at age 54. On this admission, the patient underwent cardiac catheterization, on July 13, and had a s tent placed in his LAD. We were consulted today, for possible COPD/bronchitis, as the patient has a history of 20 years of tobacco use, at 2-3 packs a day. He is currently on room air. White count 12.8, with a normal hemoglobin, hematocrit, and platelet count. Sodium 140, potassium 3.9, chlorides 102, CO2 24, anion gap 14, BUN 25, and creatinine 0.91. His troponin was 4.460. N- terminal proBNP was 1660. The patient's chest x-ray was consistent with COPD. There was no acute disease noted. The patient is seen today 07/15/2022 in follow-up in the regular medical floor. He is currently resting comfortably in bed. Awake and alert in no acute distress. Maintaining good O2 saturations in the mid 90s on room air. Afebrile. Hemodynamically stable. Sodium 136. Potassium 4.4. Bicarb 24. BUN 22. Creatinine 0.83. proCalcitonin was 1.68. He is continued on DuoNeb inhalations, Pulmicort and Perforomist inhalations, IV Solu-Medrol. The patient is seen today 07/16/2022 in follow-up on the regular medical floor. He is sitting up in bed. Awake and alert in no acute distress. Maintaining O2 saturations in the mid to upper 90s on room air. He's been afebrile. Hemodynamically stable. No new labs today. He is continued on DuoNeb inhalations, Symbicort, prednisone taper. Antibiotics in the form of ceftriaxone. Remains on oral diuretics. Heparin for DVT prophylaxis. The patient is seen today 07/17/2022 in follow-up on the regular medical floor. He is awake and alert in no acute distress. Feeling a bit better today compared to yesterday. Less cough and congestion. No fever or chills. Maintaining good O2 saturations in the 90s on room air. Blood cultures reveal no growth. No new labs. Remains on Symbicort, DuoNeb inhalations, prednisone taper. Heparin for DVT prophylaxis. Antibiotics in the form of ceftriaxone. Objective - Vital Signs Vital signs: Vital Signs Temp 98.0 F 07/17/22 09:23 Pulse 76 07/17/22 13:03 Resp 17 07/17/22 11:55 BP 125/74 07/17/22 11:55 Pulse Ox 96 07/17/22 11:55 FiO2 Intake & Output 07/16/22 07/17/22 07/17/22 18:59 06:59 18:59 Intake Total 1560 360 Balance 1560 360 Weight 87 kg Intake: Oral 1560 360 Other: Voiding Method Toilet Toilet Toilet Urinal Urinal Urinal - Exam GENERAL EXAM: Alert, 71-year-old male patient, on room air, comfortable in no apparent distress. HEAD: Normocephalic. EYES: Normal reaction of pupils, equal size. NOSE: Clear with pink turbinates. THROAT: No erythema or exudates. NECK: No masses, no JVD. CHEST: No chest wall deformity. LUNGS: Equal air entry with bilateral end expiratory wheeze, diminished. CVS: S1 and S2 normal with no audible murmur, regular rhythm. ABDOMEN: No hepatosplenomegaly, normal bowel sounds, no guarding or rigidity. SPINE: No scoliosis or deformity SKIN: No rashes CENTRAL NERVOUS SYSTEM: No focal deficits, tone is normal in all 4 extremities. EXTREMITIES: There is no peripheral edema. No clubbing, no cyanosis. Peripheral pulses are intact. - Labs CBC & Chem 7: 07/14/22 08:59 07/15/22 06:57 Labs: Microbiology - Last 24 Hours (Table) 07/11/22 16:38 Blood Culture - Final Blood Assessment and Plan Assessment: Acute exacerbation of suspected chronic obstructive pulmonary disease, from previous heavy tobacco use. Possible purulent tracheobronchitis. Chest x-ray revealed no acute pulmonary process. Procalcitonin 1.68. Continued on ceftriaxone. Completed azithromycin Non-ST segment elevation myocardial infarction, status post PCI, and stenting of the LAD History of CAD with previous CABG, 1985 and 2004 Prior history of heavy tobacco use, for 20 years, at 2-3 packs a day History of hypertension History of hyperlipidemia History of ischemic cardiomyopathy Paroxysmal atrial tachycardia Plan: The patient was seen and evaluated Medications reviewed Currently stable and on room air Complete a prednisone taper Cleared for discharge Follow-up in our office in 1 week I have personally seen and examined the patient, performed the documentation and the assessment and plan as written. Number of minutes spent on the visit: 10.
[2022-07-17] MEDS: BENZOCAINE/MENTHOL LOZENG 1 EACH LOZENGE MUCOUS MEM PRN (16:02)
[2022-07-17] MEDS: FUROSEMIDE 20 MG TAB PO SCH (16:05)
[2022-07-17] MEDS: TAMSULOSIN 0.4 MG CAP.ER.24H PO SCH (17:54)
[2022-07-18] MEDS: BENZOCAINE/MENTHOL LOZENG 1 EACH LOZENGE MUCOUS MEM PRN (02:00)
[2022-07-18] MEDS: PANTOPRAZOLE 40 MG TABLET PO SCH (06:20)
[2022-07-18 06:32] VITALS: TEMP 97.6
[2022-07-18] MEDS: IPRATROPIUM-ALBUTEROL 3 ML NEB INHALATION SCH ×2 (09:07→12:20)
[2022-07-18] MEDS: SYMBICORT 160-4.5 MCG INHALER INHALATION SCH ×2 (09:07→09:20)
[2022-07-18] MEDS: HEPARIN SODIUM,PORCINE/PF 5,000 UNIT/0.5 ML SYRINGE SQ SCH (09:39)
[2022-07-18] MEDS: predniSONE 20 MG TAB PO SCH (09:40)
[2022-07-18] MEDS: FUROSEMIDE 40 MG TAB PO SCH (09:40)
[2022-07-18] MEDS: ISOSORBIDE MONONITRATE ER 30 MG TAB.ER.24H PO SCH (09:40)
[2022-07-18] MEDS: CLOPIDOGREL 75 MG TAB PO SCH (09:40)
[2022-07-18] MEDS: MONTELUKAST 10 MG TAB PO SCH (09:40)
[2022-07-18] MEDS: METOPROLOL TARTRATE 50 MG TAB PO SCH (09:40)
[2022-07-18] MEDS: lisinopriL 10 MG TAB PO SCH (09:40)
[2022-07-18] MEDS: ASPIRIN 81 MG PO SCH (09:40)
[2022-07-18] MEDS: FLUTICASONE 50MCG/SPRAY NASAL 16GM EA NOSTRIL SCH (09:41)
[2022-07-18] MEDS: NYSTATIN 100,000 UNIT/ML SUSP 500,000 UNIT/5 ML CUP PO SCH ×2 (09:47→13:24)
[2022-07-18 10:04] VITALS: BP 132/75; PULSE 81; RESP 16
--- NOTE | 2022-07-18 10:54 | P.PN ---
Subjective Progress Note Date: 07/18/22 71 -year-old male who presented to the emergency department on July 11, complaining of shortness of breath, and cough. The patient was recently added different hospital, and was diagnosed as having bronchitis, placed on antibiotics. He was apparently told that he also could have pneumonia. More recently, the patient developed fever, and was taking some Tylenol and Motrin. In addition, the patient complained of chest pain. The patient does have a history of cardiac disease, and had a bypass grafting at age 54. On this admission, the patient underwent cardiac catheterization, on July 13, and had a stent placed in his LAD. We were consulted today, for possible COPD/bronchitis, as the patient has a history of 20 years of tobacco use, at 2-3 packs a day. He is currently on room air. White count 12.8, with a normal hemoglobin, hematocrit, and platelet count. Sodium 140, potassium 3.9, chlorides 102, CO2 24, anion gap 14, BUN 25, and creatinine 0.91. His troponin was 4.460. N- terminal proBNP was 1660. The patient's chest x-ray was consistent with COPD. There was no acute disease noted. The patient is seen today 07/15/2022 in follow-up in the regular medical floor. He is currently resting comfortably in bed. Awake and alert in no acute distress. Maintaining good O2 saturations in the mid 90s on room air. Afebrile. Hemodynamically stable. Sodium 136. Potassium 4.4. Bicarb 24. BUN 22. Creatinine 0.83. proCalcitonin was 1.68. He is continued on DuoNeb inhalations, Pulmicort and Perforomist inhalations, IV Solu-Medrol. The patient is seen today 07/16/2022 in follow-up on the regular medical floor. He is sitting up in bed. Awake and alert in no acute distress. Maintaining O2 saturations in the mid to upper 90s on room air. He's been afebrile. Hemodynamically stable. No new labs today. He is continued on DuoNeb inhalations, Symbicort, prednisone taper. Antibiotics in the form of ceftriaxone. Remains on oral diuretics. Heparin for DVT prophylaxis. The patient is seen today 07/17/2022 in follow-up on the regular medical floor. He is awake and alert in no acute distress. Feeling a bit better today compared to yesterday. Less cough and congestion. No fever or chills. Maintaining good O2 saturations in the 90s on room air. Blood cultures reveal no growth. No new labs. Remains on Symbicort, DuoNeb inhalations, prednisone taper. Heparin for DVT prophylaxis. Antibiotics in the form of ceftriaxone. 07/18/2022, the patient's overall respiratory status back to baseline. No new complaints for now. He is ambulating. On room air oxygen. No chest pain. No smoking. He has undergone a home and he'll be discharged home today on a prednisone burst taper. No new labs are available from today. Objective - Vital Signs Vital signs: Vital Signs Temp 97.6 F 07/18/22 08:50 Pulse 80 07/18/22 09:21 Resp 16 07/18/22 08:50 BP 132/75 07/18/22 08:50 Pulse Ox 96 07/18/22 08:50 FiO2 Intake & Output 07/17/22 07/18/22 07/18/22 18:59 06:59 18:59 Intake Total 1458 118 Balance 1458 118 Intake: Oral 1458 118 Other: Voiding Method Toilet Urinal - Exam GENERAL EXAM: Alert, 71-year-old male patient, on room air, comfortable in no apparent distress. HEAD: Normocephalic. EYES: Normal reaction of pupils, equal size. NOSE: Clear with pink turbinates. THROAT: No erythema or exudates. NECK: No masses, no JVD. CHEST: No chest wall deformity. LUNGS: Equal air entry with bilateral end expiratory wheeze, diminished. CVS: S1 and S2 normal with no audible murmur, regular rhythm. ABDOMEN: No hepatosplenomegaly, normal bowel sounds, no guarding or rigidity. SPINE: No scoliosis or deformity SKIN: No rashes CENTRAL NERVOUS SYSTEM: No focal deficits, tone is normal in all 4 extremities. EXTREMITIES: There is no peripheral edema. No clubbing, no cyanosis. Peripheral pulses are intact. - Labs CBC & Chem 7: 07/14/22 08:59 07/15/22 06:57 Labs: Microbiology - Last 24 Hours (Table) 07/11/22 16:38 Blood Culture - Final Blood Assessment and Plan Plan: Acute exacerbation of suspected chronic obstructive pulmonary disease, from previous heavy tobacco use. Possible purulent tracheobronchitis. Chest x-ray revealed no acute pulmonary process. Procalcitonin 1.68. Continued on ceftriaxone. Completed azithromycin Non-ST segment elevation myocardial infarction, status post PCI, and stenting of the LAD History of CAD with previous CABG, 1985 and 2004 Prior history of heavy tobacco use, for 20 years, at 2-3 packs a day History of hypertension History of hyperlipidemia History of ischemic cardiomyopathy Paroxysmal atrial tachycardia Plan: The patient was seen and there will be discharged home today
--- NOTE | 2022-07-18 12:01 | P.PN ---
Subjective Progress Note Date: 07/18/22 The patient is a 71-year-old male who presented with non-STEMI, underwent cardiac catheterization and stenting. He is feeling well this morning, ambulating without difficulties. His cough is better. He denies any dizziness, palpitations or syncope. He is feeling better. He continues to be in sinus me chanism Medications: Aspirin, Plavix 75 g daily, Lasix 40 in the morning 20 in the afternoon, isoso rbide 30 mg daily, Zestril 10 mg twice a day, metoprolol 50 mg 3 times a day, Flomax, prednisone 40 mg daily,Repatha PHYSICAL EXAMINATION: Blood pressure 132/75 heart rate 80 LUNGS: Clear to auscultation HEART: Regular rate and rhythm, S1, S2. No S3. systolic ejection murmur ABDOMEN: Soft, nontender, no organomegaly EXTREMETIES: No edema IMPRESSION: 1. Status post non-STEMI and stenting of the diagonal branch 2. Status post redo CABG 3. Upper respiratory infection with bronchitis 4. History of hypertension PLAN: 1. Continue present therapy 2. Discharge home today 3. And follow-up as an outpatient Nurse practitioner note has been reviewed, I agree with the documented findings and plan of care. Patient was seen and examined. Objective - Vital Signs Vital signs: Vital Signs Temp 97.6 F 07/18/22 04:00 Pulse 59 L 07/18/22 04:00 Resp 17 07/18/22 04:00 BP 123/93 07/18/22 04:00 Pulse Ox 100 07/18/22 04:00 FiO2 Intake & Output 07/17/22 07/18/22 07/18/22 18:59 06:59 18:59 Intake Total 1458 Balance 1458 Intake: Oral 1458 Other: Voiding Method Toilet Urinal - Labs CBC & Chem 7: 07/14/22 08:59 07/15/22 06:57 Labs: Microbiology - Last 24 Hours (Table) 07/11/22 16:38 Blood Culture - Final Blood
--- NOTE | 2022-07-19 07:58 | PN ---
PROGRESS NOTE CHIEF COMPLAINT: Status post NSTEMI. HISTORY OF PRESENT ILLNESS: This gentleman is doing fairly well but he is still complaining of some tightness in the chest. EKG and enzymes have been unremarkable. He does have bronchitis and he is still coughing up phlegm. PHYSICAL EXAMINATION: LUNGS: He has bilateral rales and rhonchi. CARDIAC: Normal. ABDOMEN: Soft, nontender. IMPRESSION: 1. Status post ST-elevation myocardial infarction with stenting of the LAD. 2. Bronchitis. 3. Increase activity and continue to monitor his pulmonary status. He is being followed by pulmonology. MMODL / IJN: [id number] /
--- NOTE | 2022-07-19 08:14 | DS ---
DISCHARGE SUMMARY CHIEF COMPLAINT: Chest pain, cough, and shortness of breath. HISTORY OF PRESENT ILLNESS AND PHYSICAL EXAMINATION: Details of this man's history and physical can be found in the initial workup. LABORATORY STUDIES: While he was in the hospital, he had laboratory studies, details of which can be found in the laboratory section of his chart. COURSE IN THE HOSPITAL: After admission, he was placed on bedrest, started intravenous fluids and serial troponins were elevated. He was taken to the labor economics teacher where he had stenting of the LAD. Postoperatively, he did well except for continued cough and congestion. He was followed by pulmonology. It was felt this likely would represent bronchitis. He was continuing to improve and was doing well enough, it was felt he could be discharged on the and he will go home on light activity about the house and on a cardiac diet. He will be seen in several days. FINAL DIAGNOSES: 1. Acute NSTEMI. 2. History of coronary artery disease with previous CABG. 3. Bronchitis. 4. Anxiety. OPERATIONS: Cardiac cath. CONSULTATIONS: Cardiology and pulmonology, he is improved. MMODL / IJN: [id number] /
--- NOTE | 2022-07-19 08:47 | PN ---
PROGRESS NOTE DATE OF SERVICE: 07/17/2022 CHIEF COMPLAINT: Status post NSTEMI and stenting of the LAD. HISTORY OF PRESENT ILLNESS: He is still complaining of cough and shortness of breath. PHYSICAL EXAMINATION: VITAL SIGNS: Normal. CHEST: Demonstrates occasional rhonchi and occasional rales. CARDIAC: Normal. ABDOMEN: Soft, nontender. IMPRESSION: 1. Status post non-ST elevation myocardial infarction. 2. History of coronary artery disease. 3. Bronchitis. PLAN: Increase activity and he can probably go home in the next day or so. MMODL / IJN: [id number] /
== END 2022-07-18 14:03 | disposition home or self-care (01) | DRG 247 ==
LOC: EC 16:21 → 3SCARD 18:59
PROVIDERS: ADMIT Family Medicine; ATTEND Family Medicine
PROC: 027034Z Dilation of Coronary Artery, One Artery with Drug-eluting Intraluminal Device, Percutaneous Approach (ICD-10-PCS; principal; 2022-07-13 12:00)
PROC: 4A023N7 Measurement of Cardiac Sampling and Pressure, Left Heart, Percutaneous Approach (ICD-10-PCS; principal; 2022-07-13 12:00)
PROC: 02F03ZZ Fragmentation in Coronary Artery, One Artery, Percutaneous Approach (ICD-10-PCS; principal; 2022-07-13 12:00)
PROC: B2131ZZ Fluoroscopy of Multiple Coronary Artery Bypass Grafts using Low Osmolar Contrast (ICD-10-PCS; principal; 2022-07-13 12:00)
PROC: B2181ZZ Fluoroscopy of Left Internal Mammary Bypass Graft using Low Osmolar Contrast (ICD-10-PCS; principal; 2022-07-13 12:00)
PROC: B2111ZZ Fluoroscopy of Multiple Coronary Arteries using Low Osmolar Contrast (ICD-10-PCS; principal; 2022-07-13 12:00)
PROC: B2151ZZ Fluoroscopy of Left Heart using Low Osmolar Contrast (ICD-10-PCS; principal; 2022-07-13 12:00)
DX: I21.4 Non-ST elevation (NSTEMI) myocardial infarction (principal); J44.0 Chronic obstructive pulmonary disease with (acute) lower respiratory infection; J44.1 Chronic obstructive pulmonary disease with (acute) exacerbation; I47.1 Supraventricular tachycardia; I25.810 Atherosclerosis of coronary artery bypass graft(s) without angina pectoris; I27.20 Pulmonary hypertension, unspecified; Z20.822 Contact with and (suspected) exposure to COVID-19; J20.9 Acute bronchitis, unspecified; E78.5 Hyperlipidemia, unspecified; I25.2 Old myocardial infarction; I08.1 Rheumatic disorders of both mitral and tricuspid valves; I25.84 Coronary atherosclerosis due to calcified coronary lesion; I25.10 Atherosclerotic heart disease of native coronary artery without angina pectoris; I44.7 Left bundle-branch block, unspecified; M19.90 Unspecified osteoarthritis, unspecified site; I10 Essential (primary) hypertension; I25.5 Ischemic cardiomyopathy; I25.83 Coronary atherosclerosis due to lipid rich plaque; N40.1 Benign prostatic hyperplasia with lower urinary tract symptoms; F41.9 Anxiety disorder, unspecified; R33.9 Retention of urine, unspecified; Z79.02 Long term (current) use of antithrombotics/antiplatelets; Z79.899 Other long term (current) drug therapy; Z95.1 Presence of aortocoronary bypass graft; Z87.891 Personal history of nicotine dependence; Z88.8 Allergy status to other drugs, medicaments and biological substances; Z87.01 Personal history of pneumonia (recurrent); Z95.5 Presence of coronary angioplasty implant and graft
CPT/HCPCS: 0715T; 36415; 71046; 80048; 80053; 80061; 81003; 83605; 83880; 84145; 84484; 85025; 85610; 85730; 87636; 93005; 93306; 93459; 94640; 94760; 96365; 96366; 96368; 96375; 96376; 99291

== ENCOUNTER 2024-03-08 11:02 | Emergency (ER) | payer MEDICARE ==
[2024-03-08 11:09] VITALS: RESP 18
--- NOTE | 2024-03-08 11:39 | ED ---
URI HPI - General Chief Complaint: Upper Respiratory Infection Stated Complaint: Sore throat,Fever Time Seen by Provider: 03/08/24 11:38 Source: patient, family, RN notes reviewed Mode of arrival: ambulatory Limitations: no limitations - History of Present Illness Initial Comments: Patient is 73-year-old male presenting to the ER for evaluation of cough and fevers. Patient states for the past 3 to 4 days he has had cough, sore throat and low-grade fevers. He has taken [id number] DayQuil and NyQuil without relief. He does report his grandson has similar symptoms. Patient reports at night he is unable to lay flat due to having coughing episodes. He denies shortness of breath, chest pain, abdominal pain or other complaints. - Related Data Home Medications Medication Instructions Recorded Confirmed Albuterol Inhaler [Ventolin Hfa 2 puff INHALATION RT-Q6H PRN 07/11/22 07/11/22 Inhaler] Clopidogrel [Plavix] 75 mg PO DAILY 07/11/22 07/11/22 Evolocumab [Repatha Sureclick] 140 mg SQ Q14D 07/11/22 07/11/22 Fluticasone Nasal [place] [Flonase 1 spray EA NOSTRIL DAILY 07/11/22 07/11/22 Nasal [place]] Metoprolol Succinate (ER) [Toprol 50 mg PO DAILY 07/11/22 07/11/22 XL] Montelukast [Singulair] 10 mg PO DAILY 07/11/22 07/11/22 Omeprazole 20 mg PO DAILY 07/11/22 07/11/22 Tamsulosin [Flomax] 0.4 mg PO DAILY 07/11/22 07/11/22 lisinopriL [Zestril] 2.5 mg PO DAILY 07/11/22 07/11/22 Previous Rx's Medication Instructions Recorded Aspirin 81 mg PO DAILY #100 tab 07/18/22 Budesonide-Formot 160-4.5 Mcg 2 puff INHALATION RT-BID 30 Days 07/18/22 [Symbicort 160-4.5 Mcg Inhaler] #1 dispenser Furosemide [Lasix] 40 mg PO DAILY #30 tab 07/18/22 Isosorbide Mononitrate ER [Imdur] 30 mg PO DAILY #30 tab 05/08/23 Nystatin 100,000 Unit/ml Susp 100,000 unit PO QID #30 ml 07/18/22 [Mycostatin Oral Susp] Allergies Allergy/AdvReac Type Severity Reaction Status Date / Time niacin Allergy Unknown Verified 03/08/24 11:04 [From Niaspan Extended-Release] Review of Systems ROS Statement: Those systems with pertinent positive or pertinent negative responses have been documented in the HPI. ROS Other: All systems not noted in ROS Statement are negative. Past Medical History Past Medical History: Coronary Artery Disease (CAD), Chest Pain / Angina, Hyperlipidemia, Hypertension, Myocardial Infarction (NM), Osteoarthritis (OA), Pneumonia Last Myocardial Infarction Date:: 2005 History of Any Multi-Drug Resistant Organisms: None Reported Past Surgical History: Coronary Bypass/CABG, Heart Catheterization With Stent Additional Past Surgical History / Comment(s): CABG X2 Past Anesthesia/Blood Transfusion Reactions: No Reported Reaction Date of Last Stent Placement:: UNKNOWN Past Psychological History: No Psychological Hx Reported Smoking Status: Former smoker Past Alcohol Use History: Daily Past Drug Use History: None Reported General Exam Limitations: no limitations General appearance: alert, in no apparent distress ENT exam: Present: normal exam, normal oropharynx, mucous membranes moist, TM's normal bilaterally Neck exam: Present: normal inspection. Absent: tenderness, meningismus, lymphadenopathy Respiratory exam: Present: normal lung sounds bilaterally. Absent: respiratory distress, wheezes, rales, rhonchi, stridor Cardiovascular Exam: Present: regular rate, normal rhythm, normal heart sounds. Absent: systolic murmur, diastolic murmur, rubs, gallop, clicks Extremities exam: Present: normal inspection, full ROM, normal capillary refill. Absent: tenderness, pedal edema, joint swelling, calf tenderness Neurological exam: Present: alert, oriented X3, CN II-XII intact Skin exam: Present: warm, dry, intact, normal color. Absent: rash Course Vital Signs 03/08/24 03/08/24 03/08/24 11:05 11:31 13:11 Temperature 98.2 F 98 F Pulse Rate 88 76 Respiratory 18 18 18 Rate Blood Pressure 159/94 152/82 O2 Sat by Pulse 98 98 Oximetry Medical Decision Making - Medical Decision Making Was pt. sent in by a medical professional or institution (, PA, HUMAN RELATIONS TEACHER, urgent care, hospital, or [facility]...) When possible be specific @ -No Did you speak to anyone other than the patient for history (EMS, parent, family, police, friend...)? What history was obtained from this source @ -Patient's , at bedside, aiding in HPI and past medical history. Did you review nursing and triage notes (agree or disagree)? Why? @ -I reviewed and agree with nursing and triage notes Were old charts reviewed (outside hosp., previous admission, EMS record, old EKG, old radiological studies, urgent care reports/EKG's, [facility] records)? Report findings @ -No old charts were reviewed Differential Diagnosis (chest pain, altered mental status, abdominal pain women, abdominal pain men, vaginal bleeding, weakness, fever, dyspnea, syncope, headache, dizziness, GI bleed, back pain, seizure, CVA, palpatations, mental health, musculoskeletal)? @ -[COVID, RSV, influenza, viral sinusitis, pneumonia, strep pharyngitis, this list is not meant to be all-inclusive EKG interpreted by me (3pts min.). @ -None done X-rays interpreted by me (1pt min.). @ -[CXR interpreted by me negative for acute focal consolidations, pneumothorax or pleural effusions. CT interpreted by me (1pt min.). @ -[None done U/S interpreted by me (1pt. min.). @ -None done What testing was considered but not performed or refused? (CT, X-rays, U/S, labs)? Why? @ -None What meds were considered but not given or refused? Why? @ -None Did you discuss the management of the patient with other professionals (professionals i.e. , PA, HUMAN RELATIONS TEACHER, lab, RT, psych nurse, social worker health services, respiratory practitioner, teacher, loan workout officer, case hardener)? Give summary @ -No Was smoking cessation discussed for >3mins.? @ -No Was critical care preformed (if so, how long)? @ -No Were there social determinants of health that impacted care today? How? (Homelessness, low income, unemployed, alcoholism, drug addiction, transportation, low edu. Level, literacy, decrease access to med. care, [facility], rehab)? @ -No Was there de-escalation of care discussed even if they declined (Discuss DNR or withdrawal of care, Hospice)? DNR status @ -No What co-morbidities impacted this encounter? (DM, HTN, Smoking, COPD, CAD, Cancer, CVA, ARF, Chemo, Hep., AIDS, mental health diagnosis, sleep apnea, morbid obesity)? @ -None Was patient admitted / discharged? Hospital course, mention meds given and route, prescriptions, significant lab abnormalities, going to OR and other pertinent info. @ -Discharge. 73-year-old male presented the ER for evaluation of cough and congestion. History and physical exam completed. Vitals within normal limits. Patient no signs of acute distress nontoxic-appearing. Viral swabs negative. Chest x-ray negative. Symptoms believed to be viral in nature.Patient given p.o. Tylenol in the ER for symptom control. Upon reevaluation, patient resting company in exam room no signs of acute distress. Results constipation, all questions answered. Patient is stable for discharge. Strict return parameters discussed. Patient discharged in stable condition with follow-up to PCP. Patient verbally expressed understanding and agreement with care plan. Case discussed with ED attending, Dr. Oseguera. Undiagnosed new problem with uncertain prognosis? @ -No Drug Therapy requiring intensive monitoring for toxicity (Heparin, Nitro, Insulin, Cardizem)? @ -No Were any procedures done? @ -No Diagnosis/symptom? @ -Acute viral sinusitis/viral illness Acute, or Chronic, or Acute on Chronic? @ -Acute Uncomplicated (without systemic symptoms) or Complicated (systemic symptoms)? @ -Uncomplicated Side effects of treatment? @ -No Exacerbation, Progression, or Severe Exacerbation? @ -No Poses a threat to life or bodily function? How? (Chest pain, USA, NM, pneumonia, PE, COPD, DKA, ARF, appy, cholecystitis, CVA, Diverticulitis, Homicidal, Suicidal, threat to staff... and all critical care pts) @ -No - Lab Data Lab Results 03/08/24 03/08/24 Range/Units 11:23 11:23 Influenza Type A (PCR) Not Detected (Not Detectd) Influenza Type B (PCR) Not Detected (Not Detectd) RSV (PCR) Not Detected (Not Detectd) SARS-CoV-2 (PCR) Not Detected (Not Detectd) Group A Strep (PCR) NOT DETECTED (Not Detectd) - Radiology Data Radiology results: report reviewed, image reviewed Disposition Clinical Impression: Viral infection, Acute viral sinusitis Disposition: HOME SELF-CARE Condition: Stable Additional Instructions: Continue [id number] ibuprofen and Tylenol use. Try nasal lavage. Follow-up with PCP. Return to the ER for any new or worsening concerns. Is patient prescribed a controlled substance at d/c from ED?: No Referrals: Xenia Moe DO [Primary Care Provider] - 1-2 days Time of Disposition: 12:53
[2024-03-08] MEDS: ACETAMINOPHEN TAB 325 MG TAB PO STA (11:48)
--- NOTE | 2024-03-08 12:42 | XR ---
EXAMINATION TYPE: XR chest 2V DATE OF EXAM: 03/08/2024 12:38 PM COMPARISON: Chest radiographs from 07/14/2022 TECHNIQUE: XR chest 2V Frontal and lateral views of the chest. CLINICAL INDICATION:Male, 73 years old with history of cough/fever; FINDINGS: Lungs/Pleura: There is flattening of the diaphragm with increased lucency of the lungs. No evidence o f pneumothorax, pleural effusion or focal consolidation. Pulmonary vascularity: Unremarkable. Heart/mediastinum: Cardiomediastinal silhouette is enlarged and stable. Atherosclerotic calcificatio ns are seen in the aorta. Post-CABG changes. Musculoskeletal: Multiple level degenerative disc disease changes seen throughout the spine. Midline sternotomy wires are noted and stable. IMPRESSION: 1. No acute cardiopulmonary disease process. 2. COPD changes. 3. Cardiomegaly with post CABG changes. [facility], , 03/08/2024 12:40 PM
[2024-03-08 13:13] VITALS: BP 152/82; PULSE 76; TEMP 98
== END 2024-03-08 14:56 | disposition home or self-care (01) ==
LOC: EC 11:02
DX: J01.90 Acute sinusitis, unspecified (principal); B97.89 Other viral agents as the cause of diseases classified elsewhere; Z87.891 Personal history of nicotine dependence; Z88.8 Allergy status to other drugs, medicaments and biological substances
CPT/HCPCS: 71046; 87636; 87651; 99284